=== PATIENT | male | born 1970 | race African-American/Black ===

== ENCOUNTER 2017-01-05 18:55 | Emergency (ER) | payer MEDICAID, MEDICARE ==
[~2017-01-05] VITALS: Ht 172.7 cm; Wt 63.5 kg
[~2017-01-05 18:55] MED LIST: INSU100I17; LISI-334
[2017-01-05 19:11] VITALS: BP 171/95
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
[2017-01-05] MEDS ORDERED: IBUPROFEN 600 MG TABLET. PO ONE (20:15)
[2017-01-05] MEDS ORDERED: HYDR-971 PO (21:46)
[2017-01-05] MEDS ORDERED: NAPR500T3 PO (21:47)
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
== END 2017-01-05 21:54 | disposition home or self-care (01) ==
LOC: ER 18:55
DX: M25.552 Pain in left hip (principal); I10 Essential (primary) hypertension; E11.9 Type 2 diabetes mellitus without complications; G89.29 Other chronic pain; X58.XXXA Exposure to other specified factors, initial encounter; Y93.61 Activity, american tackle football; Y92.89 Other specified places as the place of occurrence of the external cause; Y99.8 Other external cause status
CPT/HCPCS: 73502; 99284

== ENCOUNTER 2017-11-29 14:49 | Inpatient (IN) | payer MEDICAID, MEDICARE ==
[~2017-11-29] VITALS: Ht 177.8 cm; Wt 61.2 kg
[~2017-11-29 14:49] MED LIST changes: +HYDR-971 PO; -INSU100I17; +INSU100I17 SQ; +NAPR-514 PO
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
[2017-11-29] MEDS ORDERED: IV NORMAL SALINE 1000ML BAG 1,000 ML IV ONE ×2 (15:15)
[2017-11-29 15:19] LABS: BASO % 1 % (0-3); EOS # 0.1 x10^3/uL (0.0-0.7); EOS % 1 % (0-3); HEMATOCRIT 40.9 % (39.0-53.0); HEMOGLOBIN 13.8 g/dL (13.0-17.5); LYMPH # 2.1 x10^3/uL (1.0-4.8); LYMPH % 29 % (24-48); MEAN CORPUSCULAR HEMOGLOBIN 29 pg (25-35); MEAN CORPUSCULAR HGB CONC 34 g/dL (31-37); MEAN CORPUSCULAR VOLUME 86 fL (79-100); MONO # 0.7 x10^3/uL (0.0-1.1); MONO % 9 % (0-9); NEUT # 4.3 x10^3uL (1.8-7.7); NEUT % 61 % (31-73); PLATELET COUNT 221 x10^3/uL (140-400); RED BLOOD COUNT 4.74 x10^6/uL (4.30-5.70); RED CELL DISTRIBUTION WIDTH 14.7 % (11.5-14.5); WHITE BLOOD COUNT 7.1 x10^3/uL (4.0-11.0)
[2017-11-29] MEDS ORDERED: INSULIN REGULAR 100 UNIT/ML 3ML VIAL. IV ONE (15:30)
[2017-11-29 15:45] LABS: ALBUMIN 3.3 g/dL (3.4-5.0); ALBUMIN/GLOBULIN RATIO 0.9 (1.0-1.7); CREATININE 1.1 mg/dL (0.7-1.3); GFR 86.1; MAGNESIUM 1.8 mg/dL (1.8-2.4); POTASSIUM 4.1 mmol/L (3.5-5.1); TOTAL BILIRUBIN 0.4 mg/dL (0.2-1.0); TOTAL PROTEIN 6.9 g/dL (6.4-8.2)
[2017-11-29] MEDS ORDERED: MORPHINE SULFATE 2 MG/ML VIAL. IV ONE (15:45)
--- NOTE | 2017-11-29 15:49 | RAD ---
Portable chest, 11/29/2017: HISTORY: Diabetic with hyperglycemia and vomiting Comparison is made to a study from 08/01/2012. The heart size and pulmonary vascularity are normal. No pulmonary infiltrate is seen. There is no evidence of pleural fluid. IMPRESSION: No acute cardiopulmonary abnormality is detected. Electronically signed by: Zia Salazar MD (11/29/2017 3:45 PM) [facility]
[2017-11-29] MEDS ORDERED: INSULIN,REGULAR 150 UNIT DRIP 150 ML IV ONE (16:00)
[2017-11-29 16:21] LABS: BILIRUBIN,URINE NEGATIVE (NEG); CLARITY,URINE CLEAR; COLOR,URINE YELLOW; NITRITE,URINE NEGATIVE (NEG); PROTEIN,URINE NEGATIVE (NEG-TRACE); UROBILINOGEN,URINE 0.2 mg/dL (0.2 mg/dL)
[2017-11-29 16:38] LABS: RBC,URINE OCC /HPF (0-2); WBC,URINE OCC /HPF (0-4)
[2017-11-29 16:39] LABS: BACTERIA,URINE 0 /HPF (0-FEW); SQUAMOUS EPITHELIAL CELL,UR FEW /LPF
[2017-11-29] MEDS ORDERED: ONDANSETRON PF 4 MG/2 ML VIAL. IV PRN (17:00)
[2017-11-29] MEDS ORDERED: ACETAMINOPHEN 325 MG TABLET. PO PRN (17:00)
[2017-11-29] MEDS ORDERED: INSU100I27 SQ (19:27)
[2017-11-29] MEDS ORDERED: CYAN10005 PO (19:27)
[2017-11-29] MEDS ORDERED: HYDR-2766 PO (19:27)
[2017-11-29 19:35] VITALS: BP 150/99
[2017-11-29] MEDS: fentaNYL PF VIAL 100 MCG/2 ML VIAL IV PRN ×2 (19:37→23:44)
[2017-11-29] MEDS ORDERED: INSULIN GLARGINE 300 UNITS/3 ML INSULN.PEN. SQ SCH (21:00)
[2017-11-29] MEDS: HYDROcodone/APAP 10/325 1 TAB TABLET PO SCH (21:31)
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
[2017-11-29 23:35] VITALS: BP 152/98
[2017-11-30 04:15] VITALS: BP 154/100
--- NOTE | 2017-11-30 04:22 | EKG ---
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
--- NOTE | 2017-11-30 04:22 | EKG ---
[facility] [address] [place] [address] Test Date: 2017-11-29 Test Time: 15:28:47 Pat Name: LILO ESTRADA Department: Room: 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
[2017-11-30 04:54] LABS: BASO % 1 % (0-3); EOS # 0.2 x10^3/uL (0.0-0.7); EOS % 2 % (0-3); HEMATOCRIT 39.6 % (39.0-53.0); HEMOGLOBIN 13.4 g/dL (13.0-17.5); LYMPH # 3.4 x10^3/uL (1.0-4.8); LYMPH % 46 % (24-48); MEAN CORPUSCULAR HEMOGLOBIN 29 pg (25-35); MEAN CORPUSCULAR HGB CONC 34 g/dL (31-37); MEAN CORPUSCULAR VOLUME 86 fL (79-100); MONO # 0.7 x10^3/uL (0.0-1.1); MONO % 9 % (0-9); NEUT # 3.1 x10^3uL (1.8-7.7); NEUT % 42 % (31-73); PLATELET COUNT 205 x10^3/uL (140-400); RED BLOOD COUNT 4.59 x10^6/uL (4.30-5.70); RED CELL DISTRIBUTION WIDTH 14.3 % (11.5-14.5); WHITE BLOOD COUNT 7.4 x10^3/uL (4.0-11.0)
[2017-11-30] MEDS: fentaNYL PF VIAL 100 MCG/2 ML VIAL IV PRN (05:01)
[2017-11-30 05:14] LABS: ALBUMIN 2.9 g/dL (3.4-5.0); ALBUMIN/GLOBULIN RATIO 1.1 (1.0-1.7); CALCIUM 8.5 mg/dL (8.5-10.1); CREATININE 0.7 mg/dL (0.7-1.3); POTASSIUM 3.8 mmol/L (3.5-5.1); TOTAL BILIRUBIN 0.5 mg/dL (0.2-1.0); TOTAL PROTEIN 5.6 g/dL (6.4-8.2)
[2017-11-30 07:00] VITALS: BP 147/90
[2017-11-30] MEDS ORDERED: INSULIN LISPRO 300 UNITS/3 ML INSULN.PEN. SQ SCH (08:00)
[2017-11-30] MEDS: HYDROcodone/APAP 10/325 1 TAB TABLET PO SCH (08:38)
[2017-11-30] MEDS ORDERED: CYANOCOBALAMIN (VITAMIN B-12) 1,000 MCG TABLET. PO SCH (09:00)
[2017-11-30] MEDS ORDERED: INSU100I17 SQ (10:37)
[2017-11-30] MEDS ORDERED: INSU100I27 SQ (10:37)
[2017-11-30] MEDS ORDERED: LISI-334 PO (10:37)
[2017-11-30] MEDS ORDERED: HYDR-2766 PO (10:37)
--- NOTE | 2017-11-30 10:39 | PDOC3 ---
Discharge Summary Visit Information Date of Admission: Nov 29, 2017 Date of Discharge: Nov 30, 2017 Admitting Diagnosis: HONK Final Diagnosis acute diarrhea hyperkalemia compliance with Diabetes 1.5, on large insulin doses, normal weight HONK, hyperosmolar not ketosis Problems Medical Problems: (1) Diarrhea Status: Acute (2) Hyperglycemia Status: Acute (3) Hyponatremia Status: Acute Brief Hospital Course Allergies Allergies Coded Allergies Type Severity Reaction Last Updated Verified No Known Drug Allergies 09/12/13 No Vital Signs Vital Signs Date Time Temp Pulse Resp B/P (MAP) Pulse Ox O2 Delivery O2 Flow Rate FiO2 11/30/17 10:24 Room Air 11/30/17 07:00 97.7 75 18 147/90 (109) 99 97.7 Lab Results Laboratory Tests Test 11/29/17 15:10 11/29/17 16:10 11/29/17 16:26 11/29/17 16:48 White Blood Count 7.1 x10^3/uL (4.0-11.0) Red Blood Count 4.74 x10^6/uL (4.30-5.70) Hemoglobin 13.8 g/dL (13.0-17.5) Hematocrit 40.9 % (39.0-53.0) Mean Corpuscular Volume 86 fL (79-100) Mean Corpuscular Hemoglobin 29 pg (25-35) Mean Corpuscular Hemoglobin Concent 34 g/dL (31-37) Red Cell Distribution Width 14.7 % (11.5-14.5) Platelet Count 221 x10^3/uL (140-400) Neutrophils (%) (Auto) 61 % (31-73) Lymphocytes (%) (Auto) 29 % (24-48) Monocytes (%) (Auto) 9 % (0-9) Eosinophils (%) (Auto) 1 % (0-3) Basophils (%) (Auto) 1 % (0-3) Neutrophils # (Auto) 4.3 x10^3uL (1.8-7.7) Lymphocytes # (Auto) 2.1 x10^3/uL (1.0-4.8) Monocytes # (Auto) 0.7 x10^3/uL (0.0-1.1) Eosinophils # (Auto) 0.1 x10^3/uL (0.0-0.7) Basophils # (Auto) 0.0 x10^3/uL (0.0-0.2) Sodium Level 126 mmol/L (136-145) Potassium Level 4.1 mmol/L (3.5-5.1) Chloride Level 95 mmol/L (98-107) Carbon Dioxide Level 25 mmol/L (21-32) Anion Gap 6 (6-14) Blood Urea Nitrogen 11 mg/dL (8-26) Creatinine 1.1 mg/dL (0.7-1.3) Estimated GFR (Cockcroft-Gault) 86.1 BUN/Creatinine Ratio 10 (6-20) Glucose Level 727 mg/dL (70-99) Calcium Level 9.0 mg/dL (8.5-10.1) Magnesium Level 1.8 mg/dL (1.8-2.4) Total Bilirubin 0.4 mg/dL (0.2-1.0) Aspartate Amino Transf (AST/SGOT) 11 U/L (15-37) Alanine Aminotransferase (ALT/SGPT) 17 U/L (16-63) Alkaline Phosphatase 192 U/L (46-116) Creatine Kinase 104 U/L (39-308) Troponin I Quantitative < 0.017 ng/mL (0.000-0.055) Total Protein 6.9 g/dL (6.4-8.2) Albumin 3.3 g/dL (3.4-5.0) Albumin/Globulin Ratio 0.9 (1.0-1.7) Urine Collection Type Unknown Urine Color Yellow Urine Clarity Clear Urine pH 6.0 Urine Specific [place] >=1.030 Urine Protein Negative mg/dL (NEG-TRACE) Urine Glucose (UA) >=1000 mg/dL (NEG) Urine Ketones (Stick) Negative mg/dL (NEG) Urine Blood Negative (NEG) Urine Nitrite Negative (NEG) Urine Bilirubin Negative (NEG) Urine Urobilinogen Dipstick 0.2 mg/dL (0.2 mg/dL) Urine Leukocyte Esterase Negative (NEG) Urine RBC Occ /HPF (0-2) Urine WBC Occ /HPF (0-4) Urine Squamous Epithelial Cells Few /LPF Urine Bacteria 0 /HPF (0-FEW) Glucose (Fingerstick) 196 mg/dL (70-99) 140 mg/dL (70-99) Test 11/29/17 17:35 8/11/18 21:27 11/30/17 04:00 11/30/17 04:49 Glucose Level 216 mg/dL (70-99) 124 mg/dL (70-99) Glucose (Fingerstick) 344 mg/dL (70-99) 85 mg/dL (70-99) White Blood Count 7.4 x10^3/uL (4.0-11.0) Red Blood Count 4.59 x10^6/uL (4.30-5.70) Hemoglobin 13.4 g/dL (13.0-17.5) Hematocrit 39.6 % (39.0-53.0) Mean Corpuscular Volume 86 fL (79-100) Mean Corpuscular Hemoglobin 29 pg (25-35) Mean Corpuscular Hemoglobin Concent 34 g/dL (31-37) Red Cell Distribution Width 14.3 % (11.5-14.5) Platelet Count 205 x10^3/uL (140-400) Neutrophils (%) (Auto) 42 % (31-73) Lymphocytes (%) (Auto) 46 % (24-48) Monocytes (%) (Auto) 9 % (0-9) Eosinophils (%) (Auto) 2 % (0-3) Basophils (%) (Auto) 1 % (0-3) Neutrophils # (Auto) 3.1 x10^3uL (1.8-7.7) Lymphocytes # (Auto) 3.4 x10^3/uL (1.0-4.8) Monocytes # (Auto) 0.7 x10^3/uL (0.0-1.1) Eosinophils # (Auto) 0.2 x10^3/uL (0.0-0.7) Basophils # (Auto) 0.0 x10^3/uL (0.0-0.2) Sodium Level 136 mmol/L (136-145) Potassium Level 3.8 mmol/L (3.5-5.1) Chloride Level 103 mmol/L (98-107) Carbon Dioxide Level 25 mmol/L (21-32) Anion Gap 8 (6-14) Blood Urea Nitrogen 9 mg/dL (8-26) Creatinine 0.7 mg/dL (0.7-1.3) Estimated GFR (Cockcroft-Gault) 145.0 BUN/Creatinine Ratio 13 (6-20) Calcium Level 8.5 mg/dL (8.5-10.1) Total Bilirubin 0.5 mg/dL (0.2-1.0) Aspartate Amino Transf (AST/SGOT) 12 U/L (15-37) Alanine Aminotransferase (ALT/SGPT) 18 U/L (16-63) Alkaline Phosphatase 117 U/L (46-116) Troponin I Quantitative < 0.017 ng/mL (0.000-0.055) Total Protein 5.6 g/dL (6.4-8.2) Albumin 2.9 g/dL (3.4-5.0) Albumin/Globulin Ratio 1.1 (1.0-1.7) Test 11/30/17 07:14 Glucose (Fingerstick) 137 mg/dL (70-99) Laboratory Tests Test 11/29/17 15:10 11/29/17 16:10 11/29/17 16:26 11/29/17 16:48 White Blood Count 7.1 x10^3/uL (4.0-11.0) Red Blood Count 4.74 x10^6/uL (4.30-5.70) Hemoglobin 13.8 g/dL (13.0-17.5) Hematocrit 40.9 % (39.0-53.0) Mean Corpuscular Volume 86 fL (79-100) Mean Corpuscular Hemoglobin 29 pg (25-35) Mean Corpuscular Hemoglobin Concent 34 g/dL (31-37) Red Cell Distribution Width 14.7 % (11.5-14.5) Platelet Count 221 x10^3/uL (140-400) Neutrophils (%) (Auto) 61 % (31-73) Lymphocytes (%) (Auto) 29 % (24-48) Monocytes (%) (Auto) 9 % (0-9) Eosinophils (%) (Auto) 1 % (0-3) Basophils (%) (Auto) 1 % (0-3) Neutrophils # (Auto) 4.3 x10^3uL (1.8-7.7) Lymphocytes # (Auto) 2.1 x10^3/uL (1.0-4.8) Monocytes # (Auto) 0.7 x10^3/uL (0.0-1.1) Eosinophils # (Auto) 0.1 x10^3/uL (0.0-0.7) Basophils # (Auto) 0.0 x10^3/uL (0.0-0.2) Sodium Level 126 mmol/L (136-145) Potassium Level 4.1 mmol/L (3.5-5.1) Chloride Level 95 mmol/L (98-107) Carbon Dioxide Level 25 mmol/L (21-32) Anion Gap 6 (6-14) Blood Urea Nitrogen 11 mg/dL (8-26) Creatinine 1.1 mg/dL (0.7-1.3) Estimated GFR (Cockcroft-Gault) 86.1 BUN/Creatinine Ratio 10 (6-20) Glucose Level 727 mg/dL (70-99) Calcium Level 9.0 mg/dL (8.5-10.1) Magnesium Level 1.8 mg/dL (1.8-2.4) Total Bilirubin 0.4 mg/dL (0.2-1.0) Aspartate Amino Transf (AST/SGOT) 11 U/L (15-37) Alanine Aminotransferase (ALT/SGPT) 17 U/L (16-63) Alkaline Phosphatase 192 U/L (46-116) Creatine Kinase 104 U/L (39-308) Troponin I Quantitative < 0.017 ng/mL (0.000-0.055) Total Protein 6.9 g/dL (6.4-8.2) Albumin 3.3 g/dL (3.4-5.0) Albumin/Globulin Ratio 0.9 (1.0-1.7) Urine Collection Type Unknown Urine Color Yellow Urine Clarity Clear Urine pH 6.0 Urine Specific [place] >=1.030 Urine Protein Negative mg/dL (NEG-TRACE) Urine Glucose (UA) >=1000 mg/dL (NEG) Urine Ketones (Stick) Negative mg/dL (NEG) Urine Blood Negative (NEG) Urine Nitrite Negative (NEG) Urine Bilirubin Negative (NEG) Urine Urobilinogen Dipstick 0.2 mg/dL (0.2 mg/dL) Urine Leukocyte Esterase Negative (NEG) Urine RBC Occ /HPF (0-2) Urine WBC Occ /HPF (0-4) Urine Squamous Epithelial Cells Few /LPF Urine Bacteria 0 /HPF (0-FEW) Glucose (Fingerstick) 196 mg/dL (70-99) 140 mg/dL (70-99) Test 11/29/17 17:35 11/29/17 21:27 11/30/17 04:00 11/30/17 04:49 Glucose Level 216 mg/dL (70-99) 124 mg/dL (70-99) Glucose (Fingerstick) 344 mg/dL (70-99) 85 mg/dL (70-99) White Blood Count 7.4 x10^3/uL (4.0-11.0) Red Blood Count 4.59 x10^6/uL (4.30-5.70) Hemoglobin 13.4 g/dL (13.0-17.5) Hematocrit 39.6 % (39.0-53.0) Mean Corpuscular Volume 86 fL (79-100) Mean Corpuscular Hemoglobin 29 pg (25-35) Mean Corpuscular Hemoglobin Concent 34 g/dL (31-37) Red Cell Distribution Width 14.3 % (11.5-14.5) Platelet Count 205 x10^3/uL (140-400) Neutrophils (%) (Auto) 42 % (31-73) Lymphocytes (%) (Auto) 46 % (24-48) Monocytes (%) (Auto) 9 % (0-9) Eosinophils (%) (Auto) 2 % (0-3) Basophils (%) (Auto) 1 % (0-3) Neutrophils # (Auto) 3.1 x10^3uL (1.8-7.7) Lymphocytes # (Auto) 3.4 x10^3/uL (1.0-4.8) Monocytes # (Auto) 0.7 x10^3/uL (0.0-1.1) Eosinophils # (Auto) 0.2 x10^3/uL (0.0-0.7) Basophils # (Auto) 0.0 x10^3/uL (0.0-0.2) Sodium Level 136 mmol/L (136-145) Potassium Level 3.8 mmol/L (3.5-5.1) Chloride Level 103 mmol/L (98-107) Carbon Dioxide Level 25 mmol/L (21-32) Anion Gap 8 (6-14) Blood Urea Nitrogen 9 mg/dL (8-26) Creatinine 0.7 mg/dL (0.7-1.3) Estimated GFR (Cockcroft-Gault) 145.0 BUN/Creatinine Ratio 13 (6-20) Calcium Level 8.5 mg/dL (8.5-10.1) Total Bilirubin 0.5 mg/dL (0.2-1.0) Aspartate Amino Transf (AST/SGOT) 12 U/L (15-37) Alanine Aminotransferase (ALT/SGPT) 18 U/L (16-63) Alkaline Phosphatase 117 U/L (46-116) Troponin I Quantitative < 0.017 ng/mL (0.000-0.055) Total Protein 5.6 g/dL (6.4-8.2) Albumin 2.9 g/dL (3.4-5.0) Albumin/Globulin Ratio 1.1 (1.0-1.7) Test 11/30/17 07:14 Glucose (Fingerstick) 137 mg/dL (70-99) Brief Hospital Course Mr. Robin is a 47 old male, admit with nausea, diarrhea, hyperkalemia hyperosmol, low sodium Fluid, insulin, potasssium replacement, felt much better at DC Discharge Information Condition at Discharge: Improved Follow Up: Weeks Disposition/Orders: D/C to Home Scheduled Cyanocobalamin (Vitamin B-12) (Vitamin B-12) 1,000 Mcg Tablet, 1 TAB PO DAILY, # 30 Ref 2 (Reported) Entered as Reported by: KACY BLAKE on 11/29/171926 Last Taken: Unknown Dose on Unknown Date & Time Last Action: Continued on 11/29/172043 by NATHAN HERNANDES Insulin Aspart (Novolog Flexpen) 100 Unit/1 Ml Insuln.pen, 30 UNITS SQ TIDWMEALS for 30 Days, Ref 5 Prescribed by: NATHAN HERNANDES on 11/30/17 1037 Insulin Detemir (Levemir Flextouch) 100 Unit/1 Ml Insuln.pen, 70 UNIT SQ QHS for 30 Days, Ref 5 Prescribed by: NATHAN HERNANDES on 11/30/17 1037 Lisinopril (Lisinopril) 20 Mg Tablet, 1 TAB PO DAILY, #30 Ref 5 Prescribed by: NATHAN HERNANDES on 11/30/17 1037 Scheduled PRN Hydrocodone Bit/Acetaminophen (Hydrocodone-Apap 10-325 ) 1 Each Tablet, 1 TAB PO QID PRN for PAIN, #60 Prescribed by: NATHAN HERNANDES on 11/30/17 1037 Discontinued Medications Lisinopril (Lisinopril) 20 Mg Tablet, DAILY, (Reported) Entered as Reported by: ROSE KEMP on 07/29/131849 Last Action: Discontinued on 11/29/17 1927 by KACY BLAKE Patient Instructions Patient Instructions > 30 min face to face NATHAN Adams MD Nov 30, 2017 10:39
[2017-11-30 10:53] VITALS: BP 142/90
== END 2017-11-30 11:20 | disposition home or self-care (01) | DRG 391 ==
LOC: ER 14:49 → 5 SOUTH 16:48
PROVIDERS: ADMIT Internal Medicine; ATTEND Internal Medicine
DX: R19.7 Diarrhea, unspecified (principal); E11.00 Type 2 diabetes mellitus with hyperosmolarity without nonketotic hyperglycemic-hyperosmolar coma (NKHHC); E87.1 Hypo-osmolality and hyponatremia; G89.29 Other chronic pain; M25.552 Pain in left hip; I10 Essential (primary) hypertension; M19.90 Unspecified osteoarthritis, unspecified site; F17.210 Nicotine dependence, cigarettes, uncomplicated; E87.5 Hyperkalemia
CPT/HCPCS: 36415; 71045; 80053; 81001; 82550; 82947; 82962; 83735; 84484; 85025; 93005; 96361; 96374; 96375; J1815; J2270; J3010; J7030; 99285-25

== ENCOUNTER 2017-12-27 00:49 | Emergency (ER) | payer MEDICARE ==
[~2017-12-27] VITALS: Ht 175.3 cm; Wt 63.5 kg
[~2017-12-27 00:49] MED LIST changes: +CYAN10005 PO; +HYDR-2766 PO; +INSU100I27 SQ; +LISI-334 PO
[2017-12-27 01:15] VITALS: BP 140/83
[2017-12-27] MEDS ORDERED: CLIN300C8 PO (01:22)
[2017-12-27] MEDS ORDERED: POLY10DR LEFTEYE (01:22)
[2017-12-27] MEDS ORDERED: CLINDAMYCIN HCL 150 MG CAPSULE. PO ONE (01:30)
--- NOTE | 2017-12-27 01:51 | PHYS DOC ---
Past Medical History Past Medical History: Diabetes-Type II, Hypertension, Other Additional Past Medical Histor: chronic left hip pain Past Surgical History: Other Additional Past Surgical Histo: LEFT HIP SURGERY, right forearm repair Alcohol Use: None Drug Use: None Adult General Chief Complaint Chief Complaint: EYE PROBLEMS HPI HPI Patient is a 47 year old male presents with drainage from the right eyelid for the last 1-2 days with some redness and pain no change in vision Review of Systems Review of Systems Negative for fever Current Medications Current Medications Current Medications Medications (Trade) Dose Ordered Sig/Corie Start Time Stop Time Status Last Admin Dose Admin Clindamycin HCl (Cleocin) 300 mg 1X ONCE 12/27/17 01:30 12/27/17 01:31 DC Allergies Allergies Allergies Coded Allergies Type Severity Reaction Last Updated Verified No Known Drug Allergies 09/12/13 No Physical Exam Physical Exam Constitutional: Well developed, well nourished, no acute distress, non-toxic appearance. [] HENT: Normocephalic, atraumatic, bilateral external ears normal, oropharynx moist, no oral exudates, nose normal. [] Eyes: PERRLA, EOMI, inferior left eyelid there is evidence of blepharitis with some localized induration there is some exudative drainage coming from what appears to be the medial lacrimal duct no obvious abscesses seen Neck: Normal range of motion, no tenderness, supple, no stridor. [] Pulmonary: Normal respiratory effort no increased work of breathing no obvious chest wall trauma- Abdomen: Bowel sounds normal, soft, no tenderness, no masses, no pulsatile masses. [] Skin: Warm, dry, no erythema, no rash. [] Back: No tenderness, no CVA tenderness. [] Extremities: No tenderness, no cyanosis, no clubbing, ROM intact, no edema. [] Neurologic: Alert and oriented X 3, normal motor function, normal sensory function, no focal deficits noted. [] Psychologic: Affect normal, judgement normal, mood normal. [] Current Patient Data Vital Signs Vital Signs Date Time Temp Pulse Resp B/P (MAP) Pulse Ox O2 Delivery O2 Flow Rate FiO2 12/27/17 01:15 97.4 93 20 140/83 (102) 98 Room Air 97.4 EKG EKG [] Radiology/Procedures Radiology/Procedures [] Course & Med Decision Making Course & Med Decision Making Pertinent Labs and Imaging studies reviewed. (See chart for details) []47-year-old diabetic evidence of probable blepharitis appears fairly focal there is some exudative drainage so we have done oral antibiotics as well as eyedrops return precautions were discussed for worsening periorbital erythema for fever or for any other symptoms or concerns. Patient has no pain with extraocular movements at this time Dragon Disclaimer Dragon Disclaimer This electronic medical record was generated, in whole or in part, using a voice recognition dictation system. Departure Departure Impression: Primary Impression: Blepharitis Disposition: HOME, SELF-CARE Condition: IMPROVED Patient Instructions: Blepharitis, [id number] Scripts Polymyxin B Sulf/Trimethoprim (POLYTRIM EYE DROPS) 10 Ml Drops 1 DROP LEFTEYE Q6HRS, #10 ML Prov: IVONNE STEVENS MD 12/27/17 Clindamycin Hcl (CLINDAMYCIN HCL) 300 Mg Capsule 1 CAP PO TID, #21 CAP Prov: IVONNE STEVENS MD 12/27/17 IVONNE STEVENS MD Dec 27, 2017 01:51
== END 2017-12-27 01:48 | disposition home or self-care (01) ==
LOC: ER 00:49
DX: H01.005 Unspecified blepharitis left lower eyelid (principal); G89.29 Other chronic pain; I10 Essential (primary) hypertension; E11.9 Type 2 diabetes mellitus without complications
CPT/HCPCS: 99283

== ENCOUNTER 2018-03-13 18:10 | Emergency (ER) | payer MEDICARE ==
[~2018-03-13] VITALS: Ht 177.8 cm; Wt 63.5 kg
[~2018-03-13 18:10] MED LIST changes: +CLIN300C8 PO; -HYDR-2766 PO; +HYDR-2769 PO; +HYDR-3164 PO; -HYDR-971 PO; +POLY10DR LEFTEYE
[2018-03-13 18:17] VITALS: BP 176/100
[2018-03-13] MEDS ORDERED: HYDR-3164 PO (18:41)
[2018-03-13] MEDS ORDERED: PENI500T PO (18:41)
[2018-03-13] MEDS ORDERED: CHLO15MO2 PO (18:41)
--- NOTE | 2018-03-13 18:41 | PHYS DOC ---
Past Medical History Past Medical History: Diabetes-Type II, Hypertension, Other Additional Past Medical Histor: chronic left hip pain Past Surgical History: Other Additional Past Surgical Histo: LEFT HIP SURGERY, right forearm repair Alcohol Use: None Drug Use: None Adult General Chief Complaint Chief Complaint: DENTAL PROBLEM [facility] HPI Patient is a 47 year old [f__sex] who presents with [] Review of Systems Review of Systems Constitutional: Denies fever or chills [] Eyes: Denies change in visual acuity, redness, or eye pain [] HENT: Denies nasal congestion or sore throat [] Respiratory: Denies cough or shortness of breath [] Cardiovascular: No additional information not addressed in HPI [] GI: Denies abdominal pain, nausea, vomiting, bloody stools or diarrhea [] : Denies dysuria or hematuria [] Musculoskeletal: Denies back pain or joint pain [] Integument: Denies rash or skin lesions [] Neurologic: Denies headache, focal weakness or sensory changes [] Endocrine: Denies polyuria or polydipsia [] All other systems were reviewed and found to be within normal limits, except as documented in this note. Allergies Allergies Allergies Coded Allergies Type Severity Reaction Last Updated Verified No Known Drug Allergies 09/12/13 No Physical Exam Physical Exam Constitutional: Well developed, well nourished, no acute distress, non-toxic appearance. [] HENT: Normocephalic, atraumatic, bilateral external ears normal, oropharynx moist, no oral exudates, nose normal. [] Eyes: PERRLA, EOMI, conjunctiva normal, no discharge. [] Neck: Normal range of motion, no tenderness, supple, no stridor. [] Cardiovascular:Heart rate regular rhythm, no murmur [] Lungs & Thorax: Bilateral breath sounds clear to auscultation [] Abdomen: Bowel sounds normal, soft, no tenderness, no masses, no pulsatile masses. [] Skin: Warm, dry, no erythema, no rash. [] Back: No tenderness, no CVA tenderness. [] Extremities: No tenderness, no cyanosis, no clubbing, ROM intact, no edema. [] Neurologic: Alert and oriented X 3, normal motor function, normal sensory function, no focal deficits noted. [] Psychologic: Affect normal, judgement normal, mood normal. [] Current Patient Data Vital Signs Vital Signs Date Time Temp Pulse Resp B/P (MAP) Pulse Ox O2 Delivery O2 Flow Rate FiO2 03/13/18 18:17 99.2 106 16 176/100 (125) 99 Room Air 99.2 EKG EKG [] Radiology/Procedures Radiology/Procedures [] Course & Med Decision Making Course & Med Decision Making Pertinent Labs and Imaging studies reviewed. (See chart for details) [] Dragon Disclaimer Dragon Disclaimer This electronic medical record was generated, in whole or in part, using a voice recognition dictation system. Departure Departure Impression: Primary Impression: Dentalgia Additional Impression: Dental caries Disposition: HOME, SELF-CARE Condition: IMPROVED Referrals: NO PCP (PCP) Patient Instructions: Dental Caries, Toothache-Brief Scripts Hydrocodone/Apap 5-325 (NORCO 5-325 TABLET) 1 Each Tablet 1 TAB PO PRN Q6HRS PRN for PAIN, #6 TAB 0 Refills Prov: PETER SMITH DO 03/13/18 Penicillin V Potassium (PENICILLIN V POTASSIUM) 500 Mg Tablet 1 TAB PO QID, #40 TAB Prov: PETER SMITH DO 03/13/18 Chlorhexidine Gluconate (PERIDEX) 15 Ml Mouthwash 15 ML PO BID, #946 ML Prov: PETER SMITH DO 03/13/18 Problem Qualifiers PETER SMITH DO Mar 13, 2018 18:41
[2018-03-13] MEDS ORDERED: DEXAMETHASONE 4 MG TABLET PO ONE (19:00)
[2018-03-13] MEDS ORDERED: BUPIVAC MPF-EPI 0.5%-1:200000 30 ML VIAL. INJ ONE (19:00)
[2018-03-13] MEDS ORDERED: PENICILLIN V K 250 MG TABLET. PO ONE (19:00)
== END 2018-03-13 20:19 | disposition home or self-care (01) ==
LOC: ER 18:10
DX: K08.89 Other specified disorders of teeth and supporting structures (principal); K02.9 Dental caries, unspecified; I10 Essential (primary) hypertension; E11.9 Type 2 diabetes mellitus without complications; G89.29 Other chronic pain
CPT/HCPCS: 96372; 99283; J3490; J8540

== ENCOUNTER 2018-09-25 15:18 | Inpatient (IN) | payer MEDICARE ==
[~2018-09-25] VITALS: Ht 172.7 cm; Wt 67.7 kg
[~2018-09-25 15:18] MED LIST changes: +CHLO15MO2 PO; +PENI500T PO
[2018-09-25] MEDS ORDERED: IV NORMAL SALINE 1000ML BAG 1,000 ML IV ONE ×2 (15:45)
[2018-09-25 15:53] LABS: BASO % 1 % (0-3); EOS # 0.1 x10^3/uL (0.0-0.7); EOS % 2 % (0-3); HEMATOCRIT 45.1 % (39.0-53.0); HEMOGLOBIN 15.1 g/dL (13.0-17.5); LYMPH # 2.1 x10^3/uL (1.0-4.8); LYMPH % 33 % (24-48); MEAN CORPUSCULAR HEMOGLOBIN 29 pg (25-35); MEAN CORPUSCULAR HGB CONC 34 g/dL (31-37); MEAN CORPUSCULAR VOLUME 88 fL (79-100); MONO # 0.8 x10^3/uL (0.0-1.1); MONO % 13 % (0-9); NEUT # 3.3 x10^3uL (1.8-7.7); NEUT % 52 % (31-73); PLATELET COUNT 243 x10^3/uL (140-400); RED BLOOD COUNT 5.14 x10^6/uL (4.30-5.70); RED CELL DISTRIBUTION WIDTH 14.5 % (11.5-14.5); WHITE BLOOD COUNT 6.3 x10^3/uL (4.0-11.0)
--- NOTE | 2018-09-25 16:05 | RAD ---
EXAM: CHEST 1 VIEW. HISTORY: Shortness of breath, weakness. COMPARISON: 11/29/2018. FINDINGS: A frontal view of the chest is obtained. There are no confluent infiltrates. There is no pneumothorax or pleural effusion. The heart is not enlarged. The aorta is tortuous. The left hemidiaphragm is mildly elevated, stable. IMPRESSION: 1. No confluent infiltrates. Electronically signed by: Tavon Smiley MD (09/25/2018 4:02 PM) [facility]
[2018-09-25 16:06] LABS: CALCIUM 9.3 mg/dL (8.5-10.1); CREATININE 1.4 mg/dL (0.7-1.3); GFR 64.9; POTASSIUM 4.3 mmol/L (3.5-5.1)
[2018-09-25 16:11] LABS: ALBUMIN 3.4 g/dL (3.4-5.0); ALBUMIN/GLOBULIN RATIO 0.9 (1.0-1.7); TOTAL BILIRUBIN 0.4 mg/dL (0.2-1.0); TOTAL PROTEIN 7.3 g/dL (6.4-8.2)
--- NOTE | 2018-09-25 16:12 | EKG ---
[facility] [address] [place] [address] Test Date: 2018-09-25 Test Time: 15:29:53 Pat Name: LILO ESTRADA Department: Room: Gender: M [employer]: : 1970 Requested By: ANKITA DELATORRE Order Number: [id number] Reading MD: Measurements Intervals [place] Rate: 93 P: 66 PA: 128 QRS: -41 QRSD: 78 T: 27 QT: 350 QTc: 438 Interpretive Statements SINUS RHYTHM LEFT ATRIAL ABNORMALITY ABNORMAL LEFT AXIS DEVIATION LEFT ANTERIOR FASCICULAR BLOCK QRS(T) CONTOUR ABNORMALITY CONSISTENT WITH ANTEROSEPTAL INFARCT PROBABLY OLD ABNORMAL ECG RI6.01 Unconfirmed report No previous ECG available for comparison
--- NOTE | 2018-09-25 16:16 | RAD ---
EXAM: RIGHT UPPER QUADRANT ULTRASOUND. HISTORY: Right upper quadrant pain. COMPARISON: None. FINDINGS: Sonographic evaluation of the right upper quadrant was performed. The liver appears normal in parenchymal echotexture. There are no focal lesions. The gallbladder is partially contracted but otherwise unremarkable without evidence of stones, wall thickening or pericholecystic fluid. There is no sonographic Patel sign. The common duct measures 2 mm. The visualized portions of the head of the pancreas reveal no abnormality. The right kidney measures 11.2 cm. Right renal cortical echogenicity is mildly increased. Cortical thickness is preserved. There is no hydronephrosis. The visualized portions of the abdominal aorta and inferior vena cava are grossly patent and normal in caliber. IMPRESSION: 1. Mildly increased right renal cortical echogenicity suggests intrinsic renal disease. In the setting of pain, pyelonephritis could also be considered. Correlate with urinalysis. 2. The gallbladder is contracted but otherwise unremarkable. Electronically signed by: Tavon Smiley MD (09/25/2018 4:13 PM) [facility]
--- NOTE | 2018-09-25 16:31 | RAD ---
CT HEAD WO CONTRAST Indication: Weakness for 4 days. Exposure: One or more of the following individualized dose reduction techniques were utilized for this examination: 1. Automated exposure control 2. Adjustment of the mA and/or kV according to patient size 3. Use of iterative reconstruction technique. Technique: Standard imaging without intravenous contrast. Comparison: None FINDINGS: There is a very small area of hypoattenuation of the left ravinder, may just be artifact. No evidence of acute intracranial hemorrhage, mass effect, midline shift or abnormal extra-axial fluid collection. Lee-white matter distinction is intact. The orbits appear symmetric. No evidence of prominent scalp swelling. The visualized sinuses demonstrate mild ethmoid and maxillary sinus mucosal thickening. No acute skull abnormality. IMPRESSION: 1. Small low-density focus within the left ravinder, may just be artifactual. If there is concern for acute ischemia at the ravinder, MRI could further evaluate. 2. No evidence of acute intracranial hemorrhage or mass effect. Electronically signed by: Vini Klein MD (09/25/2018 4:28 PM) [id number]
[2018-09-25 16:54] LABS: BILIRUBIN,URINE NEGATIVE (NEG); CLARITY,URINE CLEAR; COLOR,URINE YELLOW; NITRITE,URINE NEGATIVE (NEG); PH,URINE 5.5; PROTEIN,URINE NEGATIVE (NEG-TRACE); UROBILINOGEN,URINE 0.2 mg/dL (0.2 mg/dL)
[2018-09-25] MEDS ORDERED: INSULIN REGULAR 100 UNIT/ML 3ML VIAL. IV ONE (17:00)
[2018-09-25 17:04] LABS: AMPHETAMINE/METHAMPHETAMINE NEG (NEG); BARBITURATES NEG (NEG); BENZODIAZEPINES NEG (NEG); CANNABINOIDS NEG (NEG); COCAINE POS (NEG); METHADONE NEG (NEG); OPIATES NEG (NEG); PHENCYCLIDINE NEG (NEG)
[2018-09-25 17:06] LABS: BACTERIA,URINE 0 /HPF (0-FEW); SQUAMOUS EPITHELIAL CELL,UR MOD /LPF; TRICHOMONAS,URINE PRESENT
[2018-09-25] MEDS ORDERED: NAPROXEN 500 MG TABLET PO STA (18:17)
[2018-09-25] MEDS ORDERED: HYDROcodone/APAP 5/325MG 1 TAB TABLET PO ONE (18:30)
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
[2018-09-25] MEDS ORDERED: HYDROcodone/APAP 5/325MG 1 TAB TABLET PO PRN (18:45)
[2018-09-25] MEDS ORDERED: LABETALOL 20 MG/4 ML DISP.SYRIN. IVP PRN (18:45)
[2018-09-25] MEDS ORDERED: ZOLPIDEM 5 MG TABLET. PO PRN (18:45)
[2018-09-25] MEDS ORDERED: DEXTROSE 50% 25 GM / 50ML DISP.SYRIN. IV PRN (18:45)
--- NOTE | 2018-09-25 18:50 | PHYS DOC ---
Past Medical History Past Medical History: Diabetes-Type II, Hypertension, Other Additional Past Medical Histor: chronic left hip pain Past Surgical History: Other Additional Past Surgical Histo: LEFT HIP SURGERY, right forearm repair Additional Information: 0.5 PPD Alcohol Use: None Drug Use: None Adult General Chief Complaint Chief Complaint: WEAKNESS/GENERALIZED HPI HPI Patient is a 48 year old male with history of diabetes in 2, hypertension, who presents today complaining of generalized weakness, symptoms for 4 days. Patient also states he has history of diabetes as well as hypertension, he stopped using his medications months ago. He states he does not have any money to buy the medications. Patient denies any chest pain or shortness of breath. Patient is also complaining of mild to moderate right upper quadrant sharp abdominal pain since yesterday. Denies any nausea vomiting. Denies any exacerbating or relieving factors to his abdominal pain. Review of Systems Review of Systems Constitutional: Denies fever or chills [] Eyes: Denies change in visual acuity, redness, or eye pain [] HENT: Denies nasal congestion or sore throat [] Respiratory: Denies cough or shortness of breath [] Cardiovascular: No additional information not addressed in HPI [] GI: Denies abdominal pain, nausea, vomiting, bloody stools or diarrhea [] : Denies dysuria or hematuria [] Musculoskeletal: Denies back pain or joint pain [] Integument: Denies rash or skin lesions [] Neurologic: Reports generalized weakness. Denies headache, focal weakness or sensory changes [] All other systems were reviewed and found to be within normal limits, except as documented in this note. Current Medications Current Medications Current Medications Medications (Trade) Dose Ordered Sig/Corie Start Time Stop Time Status Last Admin Dose Admin Acetaminophen/ Hydrocodone Bitart (Lortab 5/325) 1 tab PRN Q6HRS PRN 09/25/18 18:45 UNV Dextrose (Dextrose 50%-Water Syringe) 12.5 gm PRN Q15MIN PRN 09/25/18 18:45 UNV Insulin Glargine (Lantus) 60 units QHS 09/25/18 21:00 Insulin Human Lispro (HumaLOG) 30 units TIDWMEALS 09/26/18 08:00 UNV Insulin Human Regular (HumuLIN R VIAL) 8 unit 1X ONCE 09/25/18 17:00 09/25/18 17:01 DC 09/25/18 17:25 8 UNIT Ketorolac Tromethamine (Toradol 15mg Vial) 15 mg PRN Q6HRS PRN 09/25/18 18:45 09/30/18 18:44 UNV Labetalol HCl (Normodyne Iv Push) 20 mg PRN Q2HR PRN 09/25/18 18:45 Lisinopril (Prinivil) 20 mg DAILY 09/26/18 09:00 UNV Naproxen (Naprosyn) 250 mg BID 09/25/18 21:00 UNV Sodium Chloride 1,000 ml @ 100 mls/hr Q10H 09/25/18 18:45 UNV Zolpidem Tartrate (Ambien) 5 mg PRN QHS PRN 09/25/18 18:45 UNV Allergies Allergies Allergies Coded Allergies Type Severity Reaction Last Updated Verified No Known Drug Allergies 09/12/13 No Physical Exam Physical Exam Constitutional: Well developed, well nourished, no acute distress, non-toxic appearance. [] HENT: Normocephalic, atraumatic, bilateral external ears normal, oropharynx moist, no oral exudates, nose normal. [] Eyes: PERRLA, EOMI, conjunctiva normal, no discharge. [] Neck: Normal range of motion, no tenderness, supple, no stridor. [] Cardiovascular:Heart rate regular rhythm, no murmur [] Lungs & Thorax: Bilateral breath sounds clear to auscultation [] Abdomen: Bowel sounds normal, soft, no tenderness, no masses, no pulsatile masses. [] Skin: Warm, dry, no erythema, no rash. [] Back: No tenderness, no CVA tenderness. [] Extremities: No tenderness, no cyanosis, no clubbing, ROM intact, no edema. [] Neurologic: Alert and oriented X 3, normal motor function, normal sensory function, no focal deficits noted. Cranial nerves II through XII intact Psychologic: Affect normal, judgement normal, mood normal. [] Current Patient Data Vital Signs Vital Signs Date Time Temp Pulse Resp B/P (MAP) Pulse Ox O2 Delivery O2 Flow Rate FiO2 09/25/18 15:23 98.2 98 16 175/100 (125) 99 Room Air 98.2 Lab Values Laboratory Tests Test 09/25/18 15:27 09/25/18 15:34 09/25/18 16:45 09/25/18 18:15 Glucose (Fingerstick) 451 mg/dL (70-99) H 117 mg/dL (70-99) H White Blood Count 6.3 x10^3/uL (4.0-11.0) Red Blood Count 5.14 x10^6/uL (4.30-5.70) Hemoglobin 15.1 g/dL (13.0-17.5) Hematocrit 45.1 % (39.0-53.0) Mean Corpuscular Volume 88 fL (79-100) Mean Corpuscular Hemoglobin 29 pg (25-35) Mean Corpuscular Hemoglobin Concent 34 g/dL (31-37) Red Cell Distribution Width 14.5 % (11.5-14.5) Platelet Count 243 x10^3/uL (140-400) Neutrophils (%) (Auto) 52 % (31-73) Lymphocytes (%) (Auto) 33 % (24-48) Monocytes (%) (Auto) 13 % (0-9) H Eosinophils (%) (Auto) 2 % (0-3) Basophils (%) (Auto) 1 % (0-3) Neutrophils # (Auto) 3.3 x10^3uL (1.8-7.7) Lymphocytes # (Auto) 2.1 x10^3/uL (1.0-4.8) Monocytes # (Auto) 0.8 x10^3/uL (0.0-1.1) Eosinophils # (Auto) 0.1 x10^3/uL (0.0-0.7) Basophils # (Auto) 0.0 x10^3/uL (0.0-0.2) Sodium Level 137 mmol/L (136-145) Potassium Level 4.3 mmol/L (3.5-5.1) Chloride Level 97 mmol/L (98-107) L Carbon Dioxide Level 26 mmol/L (21-32) Anion Gap 14 (6-14) Blood Urea Nitrogen 20 mg/dL (8-26) Creatinine 1.4 mg/dL (0.7-1.3) H Estimated GFR (Cockcroft-Gault) 64.9 BUN/Creatinine Ratio 14 (6-20) Glucose Level 465 mg/dL (70-99) H Calcium Level 9.3 mg/dL (8.5-10.1) Magnesium Level 2.0 mg/dL (1.8-2.4) Total Bilirubin 0.4 mg/dL (0.2-1.0) Aspartate Amino Transferase (AST) 15 U/L (15-37) Alanine Aminotransferase (ALT) 17 U/L (16-63) Alkaline Phosphatase 143 U/L (46-116) H Creatine Kinase 138 U/L (39-308) Creatine Kinase MB (Mass) 1.7 ng/mL (0.0-3.6) Creatine Kinase MB Relative Index 1.2 % (0-4) Troponin I Quantitative < 0.017 ng/mL (0.000-0.055) FA-Map-E-Type Natriuretic Peptide 110 pg/mL (0-124) Total Protein 7.3 g/dL (6.4-8.2) Albumin 3.4 g/dL (3.4-5.0) Albumin/Globulin Ratio 0.9 (1.0-1.7) L Lipase 115 U/L (73-393) Urine Collection Type Void Urine Color Yellow Urine Clarity Clear Urine pH 5.5 Urine Specific [place] 1.025 Urine Protein Negative mg/dL (NEG-TRACE) Urine Glucose (UA) >=1000 mg/dL (NEG) Urine Ketones (Stick) 40 mg/dL (NEG) Urine Blood Trace (NEG) Urine Nitrite Negative (NEG) Urine Bilirubin Negative (NEG) Urine Urobilinogen Dipstick 0.2 mg/dL (0.2 mg/dL) Urine Leukocyte Esterase Negative (NEG) Urine RBC 3-5 /HPF (0-2) Urine WBC 5-10 /HPF (0-4) Urine Squamous Epithelial Cells Mod /LPF Urine Bacteria 0 /HPF (0-FEW) Urine Trichomonas Present Urine Opiates Screen Neg (NEG) Urine Methadone Screen Neg (NEG) Urine Barbiturates Neg (NEG) Urine Phencyclidine Screen Neg (NEG) Urine Amphetamine/Methamphetamine Neg (NEG) Urine Benzodiazepines Screen Neg (NEG) Urine Cocaine Screen Pos (NEG) Urine Cannabinoids Screen Neg (NEG) Urine Ethyl Alcohol Neg (NEG) Laboratory Tests 09/25/18 15:34 Laboratory Tests 09/25/18 15:34 EKG EKG Interpreted by Dr. Watkins sinus rhythm heart rate 93 no STEMI Radiology/Procedures Radiology/Procedures []PROCEDURE: PORTABLE CHEST 1V EXAM: CHEST 1 VIEW. HISTORY: Shortness of breath, weakness. COMPARISON: 11/29/2018. FINDINGS: A frontal view of the chest is obtained. There are no confluent infiltrates. There is no pneumothorax or pleural effusion. The heart is not enlarged. The aorta is tortuous. The left hemidiaphragm is mildly elevated, stable. IMPRESSION: 1. No confluent infiltrates. Electronically signed by: Tavon Smiley MD (09/25/2018 4:02 PM) [facility] DICTATED and SIGNED BY: AYESHA SMILEY MD DATE: 09/25/18 1602 PROCEDURE: CT HEAD WO CONTRAST CT HEAD WO CONTRAST Indication: Weakness for 4 days. Exposure: One or more of the following individualized dose reduction techniques were utilized for this examination: 1. Automated exposure control 2. Adjustment of the mA and/or kV according to patient size 3. Use of iterative reconstruction technique. Technique: Standard imaging without intravenous contrast. Comparison: None FINDINGS: There is a very small area of hypoattenuation of the left ravinder, may just be artifact. No evidence of acute intracranial hemorrhage, mass effect, midline shift or abnormal extra-axial fluid collection. Lee-white matter distinction is intact. The orbits appear symmetric. No evidence of prominent scalp swelling. The visualized sinuses demonstrate mild ethmoid and maxillary sinus mucosal thickening. No acute skull abnormality. IMPRESSION: 1. Small low-density focus within the left ravinder, may just be artifactual. If there is concern for acute ischemia at the ravinder, MRI could further evaluate. 2. No evidence of acute intracranial hemorrhage or mass effect. Electronically signed by: Vini Klein MD (09/25/2018 4:28 PM) [id number] DICTATED and SIGNED BY: VINI KLEIN MD DATE: 09/25/18 1628 PROCEDURE: ABDOMEN LTD EXAM: RIGHT UPPER QUADRANT ULTRASOUND. HISTORY: Right upper quadrant pain. COMPARISON: None. FINDINGS: Sonographic evaluation of the right upper quadrant was performed. The liver appears normal in parenchymal echotexture. There are no focal lesions. The gallbladder is partially contracted but otherwise unremarkable without evidence of stones, wall thickening or pericholecystic fluid. There is no sonographic Patel sign. The common duct measures 2 mm. The visualized portions of the head of the pancreas reveal no abnormality. The right kidney measures 11.2 cm. Right renal cortical echogenicity is mildly increased. Cortical thickness is preserved. There is no hydronephrosis. The visualized portions of the abdominal aorta and inferior vena cava are grossly patent and normal in caliber. IMPRESSION: 1. Mildly increased right renal cortical echogenicity suggests intrinsic renal disease. In the setting of pain, pyelonephritis could also be considered. Correlate with urinalysis. 2. The gallbladder is contracted but otherwise unremarkable. Electronically signed by: Tavon Smiley MD (09/25/2018 4:13 PM) [facility] DICTATED and SIGNED BY: AYESHA SIMLEY MD DATE: 09/25/18 2155 Course & Med Decision Making Course & Med Decision Making Pertinent Labs and Imaging studies reviewed. (See chart for details) This is a 48-year-old male patient presenting to the ED today complaining of generalized weakness as well as right upper quadrant abdominal pain, symptoms for 4 days. Patient also states he has not been using his insulin as well as his high blood pressure medications because he ran out and does not have money to buy them. EKG was negative, CT of the head was negative for any acute findings.results were discussed with Chest x-ray is negative. CBC within normal WBC, CMP with glucose of 465, anion gap is normal. Creatinine 1.4, BUN is normal. Urine noted for 40 ketones, no leukocytes, no nitrites. BP 175/100- BP medicines ordered Patient was given 2 L of IV fluid and 8 units of insulin. Blood glucose [address] Terry who accepted patient for admission Dragon Disclaimer Dragon Disclaimer This electronic medical record was generated, in whole or in part, using a voice recognition dictation system. Departure Departure Impression: Primary Impression: Hyperglycemia Additional Impressions: Uncontrolled hypertension Right upper quadrant pain Generalized weakness Disposition: ADMITTED INPATIENT Condition: STABLE Referrals: NO PCP (PCP) Problem Qualifiers ANKITA DELATORRE TERRITORY REPRESENTATIVE Sep 25, 2018 18:50
[2018-09-25] MEDS ORDERED: ONDANSETRON PF 4 MG/2 ML VIAL. IV PRN (19:00)
[2018-09-25] MEDS ORDERED: ACETAMINOPHEN 325 MG TABLET. PO PRN (19:00)
[2018-09-25] MEDS: IV NORMAL SALINE 1000ML BAG 1,000 ML IV SCH (19:06)
--- NOTE | 2018-09-25 19:19 | RAD ---
EXAM: Left hip, 2 views. HISTORY: Pain. COMPARISON: 01/05/2017. FINDINGS: 2 views of the left hip are obtained. There is near complete loss of the left hip joint space with severe degenerative subchondral sclerosis, subchondral cyst formation, marginal osteophytosis and superior acetabular and femoral head remodeling. There is surrounding heterotopic ossification and there are chronic fragment osteophyte. IMPRESSION: 1. Severe degenerative change involving the left hip with associated bony remodeling, increased compared to the prior study. 2. No acute osseous finding. Electronically signed by: Josselyn Canchola MD (09/25/2018 7:17 PM) [facility]
--- NOTE | 2018-09-25 19:30 | NUR ---
The patient, LILO ESTRADA, 48 y/o, M admitted by CARLEY DUEÑAS MD, was given written information regarding hospital policies, unit procedures and contact persons. Valuables were checked and left in the room.
[2018-09-25] MEDS: HYDROcodone/APAP 5/325MG 1 TAB TABLET PO PRN (20:56)
[2018-09-25] MEDS ORDERED: NAPROXEN 250 MG TABLET PO PRN (21:00)
[2018-09-25 21:28] VITALS: BP 174/100
[2018-09-25 23:00] VITALS: BP 145/85
[2018-09-25] MEDS: INSULIN GLARGINE 300 UNITS/3 ML INSULN.PEN. SQ SCH (23:05)
[2018-09-25] MEDS ORDERED: cloNIDine HCL 0.1 MG TABLET PO PRN (23:15)
[2018-09-25] MEDS ORDERED: NICOTINE 21MG PATCH. TD PRN (23:15)
[2018-09-26] VITALS (7 sets, daily range): BP systolic 133–157; BP diastolic 88–107
[2018-09-26] MEDS: KETOROLAC 15 MG/ML VIAL. IV PRN ×2 (00:32→08:31)
[2018-09-26] MEDS: HYDROcodone/APAP 5/325MG 1 TAB TABLET PO PRN ×6 (01:22→22:40)
[2018-09-26 03:56] LABS: BASO % 1 % (0-3); EOS # 0.2 x10^3/uL (0.0-0.7); EOS % 3 % (0-3); HEMATOCRIT 39.6 % (39.0-53.0); HEMOGLOBIN 13.1 g/dL (13.0-17.5); LYMPH # 1.9 x10^3/uL (1.0-4.8); LYMPH % 35 % (24-48); MEAN CORPUSCULAR HEMOGLOBIN 29 pg (25-35); MEAN CORPUSCULAR HGB CONC 33 g/dL (31-37); MEAN CORPUSCULAR VOLUME 87 fL (79-100); MONO # 0.6 x10^3/uL (0.0-1.1); MONO % 11 % (0-9); NEUT # 2.8 x10^3uL (1.8-7.7); NEUT % 50 % (31-73); PLATELET COUNT 211 x10^3/uL (140-400); RED BLOOD COUNT 4.57 x10^6/uL (4.30-5.70); RED CELL DISTRIBUTION WIDTH 14.2 % (11.5-14.5); WHITE BLOOD COUNT 5.5 x10^3/uL (4.0-11.0)
[2018-09-26 04:03] LABS: CALCIUM 8.6 mg/dL (8.5-10.1); CREATININE 0.9 mg/dL (0.7-1.3); GFR 108.1; POTASSIUM 4.5 mmol/L (3.5-5.1)
[2018-09-26] MEDS: IV NORMAL SALINE 1000ML BAG 1,000 ML IV SCH ×2 (05:27→15:26)
[2018-09-26] MEDS ORDERED: INSULIN LISPRO 300 UNITS/3 ML INSULN.PEN. SQ ONE (07:00)
[2018-09-26] MEDS: LISINOPRIL 20 MG TABLET PO SCH (08:27)
[2018-09-26] MEDS: INSULIN LISPRO 300 UNITS/3 ML INSULN.PEN. SQ SCH ×6 (08:36→17:08)
[2018-09-26] MEDS: hydroCHLOROthiazide 25 MG TABLET PO SCH (09:32)
[2018-09-26] MEDS: INSULIN GLARGINE 300 UNITS/3 ML INSULN.PEN. SQ SCH ×2 (09:37→21:00)
--- NOTE | 2018-09-26 09:56 | PDOC ---
PROGRESS NOTES Subjective Subjective No new complaints. He admits continued pain and stiffness in his left hip. Objective Objective Vital Signs Date Time Temp Pulse Resp B/P (MAP) Pulse Ox O2 Delivery O2 Flow Rate FiO2 09/26/18 09:32 Room Air 09/26/18 08:27 79 150/107 09/26/18 07:00 97.8 18 97 97.8 Intake and Output 09/26/18 07:00 Intake Total 4500 ml Balance 4500 ml Intake Oral 500 ml IV Total 2000 ml Blood Product IV Normal Saline Flush 2000 ml Physical Exam Physical Exam He is alert,supine in bed and seems to be in no acute distress. Dr. Ladd is not mainframe consultant. Assessment Assessment Problems Medical Problems: (1) Generalized weakness Status: Acute (2) Hyperglycemia Status: Acute (3) Right upper quadrant pain Status: Acute (4) Uncontrolled hypertension Status: Acute Plan Plan of Long-Term with out patient follow up by for consideration of left CORA. Comment Review of Relevant I have reviewed the following items andrez (where applicable) has been applied. Labs Laboratory Tests Test 09/25/18 15:27 09/25/18 15:34 09/25/18 16:45 09/25/18 18:15 Glucose (Fingerstick) 451 mg/dL (70-99) 117 mg/dL (70-99) White Blood Count 6.3 x10^3/uL (4.0-11.0) Red Blood Count 5.14 x10^6/uL (4.30-5.70) Hemoglobin 15.1 g/dL (13.0-17.5) Hematocrit 45.1 % (39.0-53.0) Mean Corpuscular Volume 88 fL (79-100) Mean Corpuscular Hemoglobin 29 pg (25-35) Mean Corpuscular Hemoglobin Concent 34 g/dL (31-37) Red Cell Distribution Width 14.5 % (11.5-14.5) Platelet Count 243 x10^3/uL (140-400) Neutrophils (%) (Auto) 52 % (31-73) Lymphocytes (%) (Auto) 33 % (24-48) Monocytes (%) (Auto) 13 % (0-9) Eosinophils (%) (Auto) 2 % (0-3) Basophils (%) (Auto) 1 % (0-3) Neutrophils # (Auto) 3.3 x10^3uL (1.8-7.7) Lymphocytes # (Auto) 2.1 x10^3/uL (1.0-4.8) Monocytes # (Auto) 0.8 x10^3/uL (0.0-1.1) Eosinophils # (Auto) 0.1 x10^3/uL (0.0-0.7) Basophils # (Auto) 0.0 x10^3/uL (0.0-0.2) Sodium Level 137 mmol/L (136-145) Potassium Level 4.3 mmol/L (3.5-5.1) Chloride Level 97 mmol/L (98-107) Carbon Dioxide Level 26 mmol/L (21-32) Anion Gap 14 (6-14) Blood Urea Nitrogen 20 mg/dL (8-26) Creatinine 1.4 mg/dL (0.7-1.3) Estimated GFR (Cockcroft-Gault) 64.9 BUN/Creatinine Ratio 14 (6-20) Glucose Level 465 mg/dL (70-99) Calcium Level 9.3 mg/dL (8.5-10.1) Magnesium Level 2.0 mg/dL (1.8-2.4) Total Bilirubin 0.4 mg/dL (0.2-1.0) Aspartate Amino Transf (AST/SGOT) 15 U/L (15-37) Alanine Aminotransferase (ALT/SGPT) 17 U/L (16-63) Alkaline Phosphatase 143 U/L (46-116) Creatine Kinase 138 U/L (39-308) Creatine Kinase MB (Mass) 1.7 ng/mL (0.0-3.6) Creatine Kinase MB Relative Index 1.2 % (0-4) Troponin I Quantitative < 0.017 ng/mL (0.000-0.055) RI-[id number]-Type Natriuretic Peptide 110 pg/mL (0-124) Total Protein 7.3 g/dL (6.4-8.2) Albumin 3.4 g/dL (3.4-5.0) Albumin/Globulin Ratio 0.9 (1.0-1.7) Lipase 115 U/L (73-393) Urine Collection Type Void Urine Color Yellow Urine Clarity Clear Urine pH 5.5 Urine Specific [place] 1.025 Urine Protein Negative mg/dL (NEG-TRACE) Urine Glucose (UA) >=1000 mg/dL (NEG) Urine Ketones (Stick) 40 mg/dL (NEG) Urine Blood Trace (NEG) Urine Nitrite Negative (NEG) Urine Bilirubin Negative (NEG) Urine Urobilinogen Dipstick 0.2 mg/dL (0.2 mg/dL) Urine Leukocyte Esterase Negative (NEG) Urine RBC 3-5 /HPF (0-2) Urine WBC 5-10 /HPF (0-4) Urine Squamous Epithelial Cells Mod /LPF Urine Bacteria 0 /HPF (0-FEW) Urine Trichomonas Present Urine Opiates Screen Neg (NEG) Urine Methadone Screen Neg (NEG) Urine Barbiturates Neg (NEG) Urine Phencyclidine Screen Neg (NEG) Urine Amphetamine/Methamphetamine Neg (NEG) Urine Benzodiazepines Screen Neg (NEG) Urine Cocaine Screen Pos (NEG) Urine Cannabinoids Screen Neg (NEG) Urine Ethyl Alcohol Neg (NEG) Test 09/25/18 19:59 09/26/18 03:35 09/26/18 08:08 Glucose (Fingerstick) 161 mg/dL (70-99) 272 mg/dL (70-99) White Blood Count 5.5 x10^3/uL (4.0-11.0) Red Blood Count 4.57 x10^6/uL (4.30-5.70) Hemoglobin 13.1 g/dL (13.0-17.5) Hematocrit 39.6 % (39.0-53.0) Mean Corpuscular Volume 87 fL (79-100) Mean Corpuscular Hemoglobin 29 pg (25-35) Mean Corpuscular Hemoglobin Concent 33 g/dL (31-37) Red Cell Distribution Width 14.2 % (11.5-14.5) Platelet Count 211 x10^3/uL (140-400) Neutrophils (%) (Auto) 50 % (31-73) Lymphocytes (%) (Auto) 35 % (24-48) Monocytes (%) (Auto) 11 % (0-9) Eosinophils (%) (Auto) 3 % (0-3) Basophils (%) (Auto) 1 % (0-3) Neutrophils # (Auto) 2.8 x10^3uL (1.8-7.7) Lymphocytes # (Auto) 1.9 x10^3/uL (1.0-4.8) Monocytes # (Auto) 0.6 x10^3/uL (0.0-1.1) Eosinophils # (Auto) 0.2 x10^3/uL (0.0-0.7) Basophils # (Auto) 0.0 x10^3/uL (0.0-0.2) Sodium Level 133 mmol/L (136-145) Potassium Level 4.5 mmol/L (3.5-5.1) Chloride Level 98 mmol/L (98-107) Carbon Dioxide Level 24 mmol/L (21-32) Anion Gap 11 (6-14) Blood Urea Nitrogen 16 mg/dL (8-26) Creatinine 0.9 mg/dL (0.7-1.3) Estimated GFR (Cockcroft-Gault) 108.1 Glucose Level 475 mg/dL (70-99) Calcium Level 8.6 mg/dL (8.5-10.1) Laboratory Tests Test 09/25/18 15:27 09/25/18 15:34 09/25/18 16:45 09/25/18 18:15 Glucose (Fingerstick) 451 mg/dL (70-99) 117 mg/dL (70-99) White Blood Count 6.3 x10^3/uL (4.0-11.0) Red Blood Count 5.14 x10^6/uL (4.30-5.70) Hemoglobin 15.1 g/dL (13.0-17.5) Hematocrit 45.1 % (39.0-53.0) Mean Corpuscular Volume 88 fL (79-100) Mean Corpuscular Hemoglobin 29 pg (25-35) Mean Corpuscular Hemoglobin Concent 34 g/dL (31-37) Red Cell Distribution Width 14.5 % (11.5-14.5) Platelet Count 243 x10^3/uL (140-400) Neutrophils (%) (Auto) 52 % (31-73) Lymphocytes (%) (Auto) 33 % (24-48) Monocytes (%) (Auto) 13 % (0-9) Eosinophils (%) (Auto) 2 % (0-3) Basophils (%) (Auto) 1 % (0-3) Neutrophils # (Auto) 3.3 x10^3uL (1.8-7.7) Lymphocytes # (Auto) 2.1 x10^3/uL (1.0-4.8) Monocytes # (Auto) 0.8 x10^3/uL (0.0-1.1) Eosinophils # (Auto) 0.1 x10^3/uL (0.0-0.7) Basophils # (Auto) 0.0 x10^3/uL (0.0-0.2) Sodium Level 137 mmol/L (136-145) Potassium Level 4.3 mmol/L (3.5-5.1) Chloride Level 97 mmol/L (98-107) Carbon Dioxide Level 26 mmol/L (21-32) Anion Gap 14 (6-14) Blood Urea Nitrogen 20 mg/dL (8-26) Creatinine 1.4 mg/dL (0.7-1.3) Estimated GFR (Cockcroft-Gault) 64.9 BUN/Creatinine Ratio 14 (6-20) Glucose Level 465 mg/dL (70-99) Calcium Level 9.3 mg/dL (8.5-10.1) Magnesium Level 2.0 mg/dL (1.8-2.4) Total Bilirubin 0.4 mg/dL (0.2-1.0) Aspartate Amino Transf (AST/SGOT) 15 U/L (15-37) Alanine Aminotransferase (ALT/SGPT) 17 U/L (16-63) Alkaline Phosphatase 143 U/L (46-116) Creatine Kinase 138 U/L (39-308) Creatine Kinase MB (Mass) 1.7 ng/mL (0.0-3.6) Creatine Kinase MB Relative Index 1.2 % (0-4) Troponin I Quantitative < 0.017 ng/mL (0.000-0.055) LH-Hdy-T-Type Natriuretic Peptide 110 pg/mL (0-124) Total Protein 7.3 g/dL (6.4-8.2) Albumin 3.4 g/dL (3.4-5.0) Albumin/Globulin Ratio 0.9 (1.0-1.7) Lipase 115 U/L (73-393) Urine Collection Type Void Urine Color Yellow Urine Clarity Clear Urine pH 5.5 Urine Specific [place] 1.025 Urine Protein Negative mg/dL (NEG-TRACE) Urine Glucose (UA) >=1000 mg/dL (NEG) Urine Ketones (Stick) 40 mg/dL (NEG) Urine Blood Trace (NEG) Urine Nitrite Negative (NEG) Urine Bilirubin Negative (NEG) Urine Urobilinogen Dipstick 0.2 mg/dL (0.2 mg/dL) Urine Leukocyte Esterase Negative (NEG) Urine RBC 3-5 /HPF (0-2) Urine WBC 5-10 /HPF (0-4) Urine Squamous Epithelial Cells Mod /LPF Urine Bacteria 0 /HPF (0-FEW) Urine Trichomonas Present Urine Opiates Screen Neg (NEG) Urine Methadone Screen Neg (NEG) Urine Barbiturates Neg (NEG) Urine Phencyclidine Screen Neg (NEG) Urine Amphetamine/Methamphetamine Neg (NEG) Urine Benzodiazepines Screen Neg (NEG) Urine Cocaine Screen Pos (NEG) Urine Cannabinoids Screen Neg (NEG) Urine Ethyl Alcohol Neg (NEG) Test 09/25/18 19:59 09/26/18 03:35 09/26/18 08:08 Glucose (Fingerstick) 161 mg/dL (70-99) 272 mg/dL (70-99) White Blood Count 5.5 x10^3/uL (4.0-11.0) Red Blood Count 4.57 x10^6/uL (4.30-5.70) Hemoglobin 13.1 g/dL (13.0-17.5) Hematocrit 39.6 % (39.0-53.0) Mean Corpuscular Volume 87 fL (79-100) Mean Corpuscular Hemoglobin 29 pg (25-35) Mean Corpuscular Hemoglobin Concent 33 g/dL (31-37) Red Cell Distribution Width 14.2 % (11.5-14.5) Platelet Count 211 x10^3/uL (140-400) Neutrophils (%) (Auto) 50 % (31-73) Lymphocytes (%) (Auto) 35 % (24-48) Monocytes (%) (Auto) 11 % (0-9) Eosinophils (%) (Auto) 3 % (0-3) Basophils (%) (Auto) 1 % (0-3) Neutrophils # (Auto) 2.8 x10^3uL (1.8-7.7) Lymphocytes # (Auto) 1.9 x10^3/uL (1.0-4.8) Monocytes # (Auto) 0.6 x10^3/uL (0.0-1.1) Eosinophils # (Auto) 0.2 x10^3/uL (0.0-0.7) Basophils # (Auto) 0.0 x10^3/uL (0.0-0.2) Sodium Level 133 mmol/L (136-145) Potassium Level 4.5 mmol/L (3.5-5.1) Chloride Level 98 mmol/L (98-107) Carbon Dioxide Level 24 mmol/L (21-32) Anion Gap 11 (6-14) Blood Urea Nitrogen 16 mg/dL (8-26) Creatinine 0.9 mg/dL (0.7-1.3) Estimated GFR (Cockcroft-Gault) 108.1 Glucose Level 475 mg/dL (70-99) Calcium Level 8.6 mg/dL (8.5-10.1) Medications Current Medications Sodium Chloride 1,000 ml @ 1,000 mls/hr 1X ONCE IV Last administered on 09/25/18 15:48; Start 09/25/18 at 15:45; Stop 09/25/18 at 16:44; Status DC Sodium Chloride 1,000 ml @ 1,000 mls/hr 1X ONCE IV Last administered on 09/25/18at 15:48; Start 09/25/18 at 15:45; Stop 09/25/18 at 16:44; Status DC Insulin Human Regular (HumuLIN R VIAL) 8 unit 1X ONCE IV Last administered on 09/25/18 17:25; Start 09/25/18 at 17:00; Stop 09/25/18 at 17:01; Status DC Acetaminophen/ Hydrocodone Bitart (Lortab 5/325) 2 tab 1X ONCE PO Last administered on 09/25/18at 19:04; Start 09/25/18 at 18:30; Stop 09/25/18 at 18:31; Status DC Naproxen (Naprosyn) 500 mg 1X STAT PO Last administered on 09/25/18at 19:05; Start 09/25/18 at 18:17; Stop 09/25/18 at 18:22; Status DC Insulin Human Lispro (HumaLOG) 0-9 UNITS TIDWMEALS SQ Last administered on 09/26/18at 08:36; Start 09/26/18 at 08:00 Dextrose (Dextrose 50%-Water Syringe) 12.5 gm PRN Q15MIN PRN IV SEE COMMENTS; Start 09/25/18 at 18:45 Insulin Glargine (Lantus) 60 units QHS SQ Last administered on 09/25/18at 23:05; Start 09/25/18 at 21:00 Insulin Human Lispro (HumaLOG) 30 units TIDWMEALS SQ Last administered on 09/26/18 08:36; Start 09/26/18 at 08:00 Sodium Chloride 1,000 ml @ 100 mls/hr Q10H IV Last administered on 09/26/18 05:27; Start 09/25/18 at 18:45 Labetalol HCl (Normodyne Iv Push) 20 mg PRN Q2HR PRN IVP HYPERTENSION; Start 09/25/18 at 18:45; Stop 09/25/18 at 23:19; Status DC Acetaminophen/ Hydrocodone Bitart (Lortab 5/325) 1 tab PRN Q4HRS PRN PO PAIN L ast administered on 09/26/18at 09:32; Start 09/25/18 at 18:45 Zolpidem Tartrate (Ambien) 5 mg PRN QHS PRN PO INSOMNIA; Start 09/25/18 at 18:45 Naproxen (Naprosyn) 250 mg PRN BID PRN PO INFLAMMATION; Start 09/25/18 at 21:00 Acetaminophen/ Hydrocodone Bitart (Lortab 5/325) 1 tab PRN Q6HRS PRN PO PAIN; Start 09/25/18 at 18:45; Status UNV Lisinopril (Prinivil) 20 mg DAILY PO Last administered on 09/26/18 08:27; Start 09/26/18 at 09:00 Ketorolac Tromethamine (Toradol 15mg Vial) 15 mg PRN Q6HRS PRN IV PAIN MILD/IN FLAMMATION Last administered on 09/26/18 08:31; Start 09/25/18 at 18:45; Stop 09/30/18 at 18:44 Ondansetron HCl (Zofran) 4 mg PRN Q8HRS PRN IV NAUSEA/VOMITING; Start 09/25/18 at 19:00; Stop 09/26/18 at 18:59 Acetaminophen (Tylenol) 650 mg PRN Q4HRS PRN PO FEVER; Start 09/25/18 at 19:00; Stop 09/26/18 at 18:59 Clonidine HCl (Catapres) 0.1 mg PRN Q1HR PRN PO HYPERTENSION; Start 09/25/18 at 23:15 Nicotine (Nicoderm Cq 21mg) 1 patch PRN DAILY PRN TD SMOKING CESSATION; Start 09/25/18 at 23:15 Insulin Human Lispro (HumaLOG) 25 units 1X ONCE SQ Last administered on 09/26/18at 06:52; Start 09/26/18 at 07:00; Stop 09/26/18 at 07:01; Status DC Insulin Glargine (Lantus) 20 units DAILY SQ Last administered on 09/26/18at 09:37; Start 09/26/18 at 09:00 Hydrochlorothiazide (Hydrodiuril) 25 mg DAILY PO Last administered on 09/26/18at 09:32; Start 09/26/18 at 09:00 Active Scripts Active [place] 5-325 Tablet (Acetaminophen/Hydrocodone Bitart) 1 Each Tablet 1 Tab PO PRN Q6HRS PRN Penicillin V Potassium 500 Mg Tablet 1 Tab PO QID Peridex (Chlorhexidine Gluconate) 15 Ml Mouthwash 15 Ml PO BID Polytrim Eye Drops (Polymyxin B Sulf/Trimethoprim) 10 Ml Drops 1 Drop LEFTEYE Q6HRS Clindamycin Hcl 300 Mg Capsule 1 Cap PO TID Lisinopril 20 Mg Tablet 1 Tab PO DAILY Levemir Flextouch (Insulin Detemir) 100 Unit/1 Ml Insuln.pen 70 Unit SQ QHS 30 Days Hydrocodone-Apap 10-325 (Hydrocodone Bit/Acetaminophen) 1 Each Tablet 1 Tab PO QID PRN Novolog Flexpen (Insulin Aspart) 100 Unit/1 Ml Insuln.pen 30 Units SQ TIDWMEALS 30 Days Reported Vitamin B-12 (Cyanocobalamin (Vitamin B-12)) 1,000 Mcg Tablet 1 Tab PO DAILY Vitals/I & O Vital Sign - Last 24 Hours 09/25/18 09/25/18 09/25/18 09/25/18 15:23 15:58 16:20 16:50 Temp 98.2 98.2 Pulse 98 84 87 84 Resp 16 19 B/P (MAP) 175/100 (125) Pulse Ox 99 100 97 O2 Delivery Room Air 09/25/18 09/25/18 09/25/18 09/25/18 17:20 19:04 19:12 19:47 Pulse 81 87 84 Resp 20 20 12 Pulse Ox 97 O2 Delivery Room Air 09/25/18 09/25/18 09/25/18 09/25/18 20:30 20:56 21:28 23:00 Temp 98.1 98.2 98.1 98.2 Pulse 82 89 Resp 18 18 B/P (MAP) 174/100 (124) 145/85 (105) Pulse Ox 97 97 97 O2 Delivery Room Air Room Air Room Air 09/26/18 09/26/18 09/26/18 09/26/18 01:22 03:00 05:25 06:25 Temp 98.8 98.8 Pulse 86 Resp 18 B/P (MAP) 157/96 (116) Pulse Ox 97 100 100 100 O2 Delivery Room Air Room Air Room Air 09/26/18 09/26/18 09/26/18 09/26/18 07:00 08:00 08:27 09:32 Temp 97.8 97.8 Pulse 79 79 Resp 18 B/P (MAP) 150/107 (121) 150/107 Pulse Ox 97 O2 Delivery Room Air Room Air Room Air Intake and Output 09/25/18 09/25/18 09/26/18 15:00 23:00 07:00 Intake Total 4000 ml 500 ml Balance 4000 ml 500 ml JULIO CESAR POLANCO MD Sep 26, 2018 09:56
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
--- NOTE | 2018-09-26 11:40 | PDOC ---
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 Ladd as outpatient-the service is out of town - physiatry Plan start Lantus 20 daily at daytime, aside from the 60 units daily at bedtime Start HCTZ - already on lisinopril 20 once a day for the high blood pressure Consults social work/give resources for rehabilitation regarding cocaine use Dr. Ladd as outpatient I will try to call the daughter Sharda [phone] Vitals Vitals Vital Signs Date Time Temp Pulse Resp B/P (MAP) Pulse Ox O2 Delivery O2 Flow Rate FiO2 09/26/18 10:32 Room Air 09/26/18 08:27 79 150/107 09/26/18 07:00 97.8 18 97 97.8 Physical Exam General: Alert, Oriented X3, Cooperative, No acute distress Heart: Regular rate, Normal S1, Normal S2 Lungs: Clear Abdomen: Normal bowel sounds, Soft, No tenderness, No hepatosplenomegaly, No masses Extremities: No clubbing, No cyanosis, No edema, Normal pulses, No tenderness/swelling Skin: No rashes, No breakdown, No significant lesion Labs LABS Laboratory Tests Test 09/25/18 15:27 09/25/18 15:34 09/25/18 16:45 09/25/18 18:15 Glucose (Fingerstick) 451 mg/dL (70-99) 117 mg/dL (70-99) White Blood Count 6.3 x10^3/uL (4.0-11.0) Red Blood Count 5.14 x10^6/uL (4.30-5.70) Hemoglobin 15.1 g/dL (13.0-17.5) Hematocrit 45.1 % (39.0-53.0) Mean Corpuscular Volume 88 fL (79-100) Mean Corpuscular Hemoglobin 29 pg (25-35) Mean Corpuscular Hemoglobin Concent 34 g/dL (31-37) Red Cell Distribution Width 14.5 % (11.5-14.5) Platelet Count 243 x10^3/uL (140-400) Neutrophils (%) (Auto) 52 % (31-73) Lymphocytes (%) (Auto) 33 % (24-48) Monocytes (%) (Auto) 13 % (0-9) Eosinophils (%) (Auto) 2 % (0-3) Basophils (%) (Auto) 1 % (0-3) Neutrophils # (Auto) 3.3 x10^3uL (1.8-7.7) Lymphocytes # (Auto) 2.1 x10^3/uL (1.0-4.8) Monocytes # (Auto) 0.8 x10^3/uL (0.0-1.1) Eosinophils # (Auto) 0.1 x10^3/uL (0.0-0.7) Basophils # (Auto) 0.0 x10^3/uL (0.0-0.2) Sodium Level 137 mmol/L (136-145) Potassium Level 4.3 mmol/L (3.5-5.1) Chloride Level 97 mmol/L (98-107) Carbon Dioxide Level 26 mmol/L (21-32) Anion Gap 14 (6-14) Blood Urea Nitrogen 20 mg/dL (8-26) Creatinine 1.4 mg/dL (0.7-1.3) Estimated GFR (Cockcroft-Gault) 64.9 BUN/Creatinine Ratio 14 (6-20) Glucose Level 465 mg/dL (70-99) Calcium Level 9.3 mg/dL (8.5-10.1) Magnesium Level 2.0 mg/dL (1.8-2.4) Total Bilirubin 0.4 mg/dL (0.2-1.0) Aspartate Amino Transf (AST/SGOT) 15 U/L (15-37) Alanine Aminotransferase (ALT/SGPT) 17 U/L (16-63) Alkaline Phosphatase 143 U/L (46-116) Creatine Kinase 138 U/L (39-308) Creatine Kinase MB (Mass) 1.7 ng/mL (0.0-3.6) Creatine Kinase MB Relative Index 1.2 % (0-4) Troponin I Quantitative < 0.017 ng/mL (0.000-0.055) JN-Kyd-Z-Type Natriuretic Peptide 110 pg/mL (0-124) Total Protein 7.3 g/dL (6.4-8.2) Albumin 3.4 g/dL (3.4-5.0) Albumin/Globulin Ratio 0.9 (1.0-1.7) Lipase 115 U/L (73-393) Urine Collection Type Void Urine Color Yellow Urine Clarity Clear Urine pH 5.5 Urine Specific [place] 1.025 Urine Protein Negative mg/dL (NEG-TRACE) Urine Glucose (UA) >=1000 mg/dL (NEG) Urine Ketones (Stick) 40 mg/dL (NEG) Urine Blood Trace (NEG) Urine Nitrite Negative (NEG) Urine Bilirubin Negative (NEG) Urine Urobilinogen Dipstick 0.2 mg/dL (0.2 mg/dL) Urine Leukocyte Esterase Negative (NEG) Urine RBC 3-5 /HPF (0-2) Urine WBC 5-10 /HPF (0-4) Urine Squamous Epithelial Cells Mod /LPF Urine Bacteria 0 /HPF (0-FEW) Urine Trichomonas Present Urine Opiates Screen Neg (NEG) Urine Methadone Screen Neg (NEG) Urine Barbiturates Neg (NEG) Urine Phencyclidine Screen Neg (NEG) Urine Amphetamine/Methamphetamine Neg (NEG) Urine Benzodiazepines Screen Neg (NEG) Urine Cocaine Screen Pos (NEG) Urine Cannabinoids Screen Neg (NEG) Urine Ethyl Alcohol Neg (NEG) Test 09/25/18 19:59 09/26/18 03:35 09/26/18 08:08 09/26/18 10:26 Glucose (Fingerstick) 161 mg/dL (70-99) 272 mg/dL (70-99) 73 mg/dL (70-99) White Blood Count 5.5 x10^3/uL (4.0-11.0) Red Blood Count 4.57 x10^6/uL (4.30-5.70) Hemoglobin 13.1 g/dL (13.0-17.5) Hematocrit 39.6 % (39.0-53.0) Mean Corpuscular Volume 87 fL (79-100) Mean Corpuscular Hemoglobin 29 pg (25-35) Mean Corpuscular Hemoglobin Concent 33 g/dL (31-37) Red Cell Distribution Width 14.2 % (11.5-14.5) Platelet Count 211 x10^3/uL (140-400) Neutrophils (%) (Auto) 50 % (31-73) Lymphocytes (%) (Auto) 35 % (24-48) Monocytes (%) (Auto) 11 % (0-9) Eosinophils (%) (Auto) 3 % (0-3) Basophils (%) (Auto) 1 % (0-3) Neutrophils # (Auto) 2.8 x10^3uL (1.8-7.7) Lymphocytes # (Auto) 1.9 x10^3/uL (1.0-4.8) Monocytes # (Auto) 0.6 x10^3/uL (0.0-1.1) Eosinophils # (Auto) 0.2 x10^3/uL (0.0-0.7) Basophils # (Auto) 0.0 x10^3/uL (0.0-0.2) Sodium Level 133 mmol/L (136-145) Potassium Level 4.5 mmol/L (3.5-5.1) Chloride Level 98 mmol/L (98-107) Carbon Dioxide Level 24 mmol/L (21-32) Anion Gap 11 (6-14) Blood Urea Nitrogen 16 mg/dL (8-26) Creatinine 0.9 mg/dL (0.7-1.3) Estimated GFR (Cockcroft-Gault) 108.1 Glucose Level 475 mg/dL (70-99) Calcium Level 8.6 mg/dL (8.5-10.1) Review of Systems Review of Systems A 14 point ROS was completed with the following noted as positive: Other systems reviewed and negative. \CONSTITUTIONAL: No fever or chills EYES: No recent changes SKIN: No rash or itching CARDIOVASCULAR: No chest pain, syncope, palpitations, or edema RESPIRATORY: No SOB or cough GASTROINTESTINAL: No nausea, vomiting or abdominal pain NEUROLOGICAL: No headaches or weakness ENDOCRINE: No cold or heat intolerance GENITOURINARY: No urgency or frequency of urination MUSCULOSKELETAL: No back pain or joint pain LYMPHATICS: No enlarged lymph nodes PSYCHIATRIC: No anxiety or depression Assessment and Plan Assessmemt and Plan Problems Medical Problems: (1) Generalized weakness Status: Acute (2) Hyperglycemia Status: Acute (3) Right upper quadrant pain Status: Acute (4) Uncontrolled hypertension Status: Acute Comment Review of Relevant I have reviewed the following items andrez (where applicable) has been applied. Labs Laboratory Tests Test 09/25/18 15:27 09/25/18 15:34 09/25/18 16:45 09/25/18 18:15 Glucose (Fingerstick) 451 mg/dL (70-99) 117 mg/dL (70-99) White Blood Count 6.3 x10^3/uL (4.0-11.0) Red Blood Count 5.14 x10^6/uL (4.30-5.70) Hemoglobin 15.1 g/dL (13.0-17.5) Hematocrit 45.1 % (39.0-53.0) Mean Corpuscular Volume 88 fL (79-100) Mean Corpuscular Hemoglobin 29 pg (25-35) Mean Corpuscular Hemoglobin Concent 34 g/dL (31-37) Red Cell Distribution Width 14.5 % (11.5-14.5) Platelet Count 243 x10^3/uL (140-400) Neutrophils (%) (Auto) 52 % (31-73) Lymphocytes (%) (Auto) 33 % (24-48) Monocytes (%) (Auto) 13 % (0-9) Eosinophils (%) (Auto) 2 % (0-3) Basophils (%) (Auto) 1 % (0-3) Neutrophils # (Auto) 3.3 x10^3uL (1.8-7.7) Lymphocytes # (Auto) 2.1 x10^3/uL (1.0-4.8) Monocytes # (Auto) 0.8 x10^3/uL (0.0-1.1) Eosinophils # (Auto) 0.1 x10^3/uL (0.0-0.7) Basophils # (Auto) 0.0 x10^3/uL (0.0-0.2) Sodium Level 137 mmol/L (136-145) Potassium Level 4.3 mmol/L (3.5-5.1) Chloride Level 97 mmol/L (98-107) Carbon Dioxide Level 26 mmol/L (21-32) Anion Gap 14 (6-14) Blood Urea Nitrogen 20 mg/dL (8-26) Creatinine 1.4 mg/dL (0.7-1.3) Estimated GFR (Cockcroft-Gault) 64.9 BUN/Creatinine Ratio 14 (6-20) Glucose Level 465 mg/dL (70-99) Calcium Level 9.3 mg/dL (8.5-10.1) Magnesium Level 2.0 mg/dL (1.8-2.4) Total Bilirubin 0.4 mg/dL (0.2-1.0) Aspartate Amino Transf (AST/SGOT) 15 U/L (15-37) Alanine Aminotransferase (ALT/SGPT) 17 U/L (16-63) Alkaline Phosphatase 143 U/L (46-116) Creatine Kinase 138 U/L (39-308) Creatine Kinase MB (Mass) 1.7 ng/mL (0.0-3.6) Creatine Kinase MB Relative Index 1.2 % (0-4) Troponin I Quantitative < 0.017 ng/mL (0.000-0.055) PC-Uhm-J-Type Natriuretic Peptide 110 pg/mL (0-124) Total Protein 7.3 g/dL (6.4-8.2) Albumin 3.4 g/dL (3.4-5.0) Albumin/Globulin Ratio 0.9 (1.0-1.7) Lipase 115 U/L (73-393) Urine Collection Type Void Urine Color Yellow Urine Clarity Clear Urine pH 5.5 Urine Specific [place] 1.025 Urine Protein Negative mg/dL (NEG-TRACE) Urine Glucose (UA) >=1000 mg/dL (NEG) Urine Ketones (Stick) 40 mg/dL (NEG) Urine Blood Trace (NEG) Urine Nitrite Negative (NEG) Urine Bilirubin Negative (NEG) Urine Urobilinogen Dipstick 0.2 mg/dL (0.2 mg/dL) Urine Leukocyte Esterase Negative (NEG) Urine RBC 3-5 /HPF (0-2) Urine WBC 5-10 /HPF (0-4) Urine Squamous Epithelial Cells Mod /LPF Urine Bacteria 0 /HPF (0-FEW) Urine Trichomonas Present Urine Opiates Screen Neg (NEG) Urine Methadone Screen Neg (NEG) Urine Barbiturates Neg (NEG) Urine Phencyclidine Screen Neg (NEG) Urine Amphetamine/Methamphetamine Neg (NEG) Urine Benzodiazepines Screen Neg (NEG) Urine Cocaine Screen Pos (NEG) Urine Cannabinoids Screen Neg (NEG) Urine Ethyl Alcohol Neg (NEG) Test 09/25/18 19:59 09/26/18 03:35 09/26/18 08:08 09/26/18 10:26 Glucose (Fingerstick) 161 mg/dL (70-99) 272 mg/dL (70-99) 73 mg/dL (70-99) White Blood Count 5.5 x10^3/uL (4.0-11.0) Red Blood Count 4.57 x10^6/uL (4.30-5.70) Hemoglobin 13.1 g/dL (13.0-17.5) Hematocrit 39.6 % (39.0-53.0) Mean Corpuscular Volume 87 fL (79-100) Mean Corpuscular Hemoglobin 29 pg (25-35) Mean Corpuscular Hemoglobin Concent 33 g/dL (31-37) Red Cell Distribution Width 14.2 % (11.5-14.5) Platelet Count 211 x10^3/uL (140-400) Neutrophils (%) (Auto) 50 % (31-73) Lymphocytes (%) (Auto) 35 % (24-48) Monocytes (%) (Auto) 11 % (0-9) Eosinophils (%) (Auto) 3 % (0-3) Basophils (%) (Auto) 1 % (0-3) Neutrophils # (Auto) 2.8 x10^3uL (1.8-7.7) Lymphocytes # (Auto) 1.9 x10^3/uL (1.0-4.8) Monocytes # (Auto) 0.6 x10^3/uL (0.0-1.1) Eosinophils # (Auto) 0.2 x10^3/uL (0.0-0.7) Basophils # (Auto) 0.0 x10^3/uL (0.0-0.2) Sodium Level 133 mmol/L (136-145) Potassium Level 4.5 mmol/L (3.5-5.1) Chloride Level 98 mmol/L (98-107) Carbon Dioxide Level 24 mmol/L (21-32) Anion Gap 11 (6-14) Blood Urea Nitrogen 16 mg/dL (8-26) Creatinine 0.9 mg/dL (0.7-1.3) Estimated GFR (Cockcroft-Gault) 108.1 Glucose Level 475 mg/dL (70-99) Calcium Level 8.6 mg/dL (8.5-10.1) Laboratory Tests Test 09/25/18 15:27 09/25/18 15:34 09/25/18 16:45 09/25/18 18:15 Glucose (Fingerstick) 451 mg/dL (70-99) 117 mg/dL (70-99) White Blood Count 6.3 x10^3/uL (4.0-11.0) Red Blood Count 5.14 x10^6/uL (4.30-5.70) Hemoglobin 15.1 g/dL (13.0-17.5) Hematocrit 45.1 % (39.0-53.0) Mean Corpuscular Volume 88 fL (79-100) Mean Corpuscular Hemoglobin 29 pg (25-35) Mean Corpuscular Hemoglobin Concent 34 g/dL (31-37) Red Cell Distribution Width 14.5 % (11.5-14.5) Platelet Count 243 x10^3/uL (140-400) Neutrophils (%) (Auto) 52 % (31-73) Lymphocytes (%) (Auto) 33 % (24-48) Monocytes (%) (Auto) 13 % (0-9) Eosinophils (%) (Auto) 2 % (0-3) Basophils (%) (Auto) 1 % (0-3) Neutrophils # (Auto) 3.3 x10^3uL (1.8-7.7) Lymphocytes # (Auto) 2.1 x10^3/uL (1.0-4.8) Monocytes # (Auto) 0.8 x10^3/uL (0.0-1.1) Eosinophils # (Auto) 0.1 x10^3/uL (0.0-0.7) Basophils # (Auto) 0.0 x10^3/uL (0.0-0.2) Sodium Level 137 mmol/L (136-145) Potassium Level 4.3 mmol/L (3.5-5.1) Chloride Level 97 mmol/L (98-107) Carbon Dioxide Level 26 mmol/L (21-32) Anion Gap 14 (6-14) Blood Urea Nitrogen 20 mg/dL (8-26) Creatinine 1.4 mg/dL (0.7-1.3) Estimated GFR (Cockcroft-Gault) 64.9 BUN/Creatinine Ratio 14 (6-20) Glucose Level 465 mg/dL (70-99) Calcium Level 9.3 mg/dL (8.5-10.1) Magnesium Level 2.0 mg/dL (1.8-2.4) Total Bilirubin 0.4 mg/dL (0.2-1.0) Aspartate Amino Transf (AST/SGOT) 15 U/L (15-37) Alanine Aminotransferase (ALT/SGPT) 17 U/L (16-63) Alkaline Phosphatase 143 U/L (46-116) Creatine Kinase 138 U/L (39-308) Creatine Kinase MB (Mass) 1.7 ng/mL (0.0-3.6) Creatine Kinase MB Relative Index 1.2 % (0-4) Troponin I Quantitative < 0.017 ng/mL (0.000-0.055) LP-Ozs-B-Type Natriuretic Peptide 110 pg/mL (0-124) Total Protein 7.3 g/dL (6.4-8.2) Albumin 3.4 g/dL (3.4-5.0) Albumin/Globulin Ratio 0.9 (1.0-1.7) Lipase 115 U/L (73-393) Urine Collection Type Void Urine Color Yellow Urine Clarity Clear Urine pH 5.5 Urine Specific [place] 1.025 Urine Protein Negative mg/dL (NEG-TRACE) Urine Glucose (UA) >=1000 mg/dL (NEG) Urine Ketones (Stick) 40 mg/dL (NEG) Urine Blood Trace (NEG) Urine Nitrite Negative (NEG) Urine Bilirubin Negative (NEG) Urine Urobilinogen Dipstick 0.2 mg/dL (0.2 mg/dL) Urine Leukocyte Esterase Negative (NEG) Urine RBC 3-5 /HPF (0-2) Urine WBC 5-10 /HPF (0-4) Urine Squamous Epithelial Cells Mod /LPF Urine Bacteria 0 /HPF (0-FEW) Urine Trichomonas Present Urine Opiates Screen Neg (NEG) Urine Methadone Screen Neg (NEG) Urine Barbiturates Neg (NEG) Urine Phencyclidine Screen Neg (NEG) Urine Amphetamine/Methamphetamine Neg (NEG) Urine Benzodiazepines Screen Neg (NEG) Urine Cocaine Screen Pos (NEG) Urine Cannabinoids Screen Neg (NEG) Urine Ethyl Alcohol Neg (NEG) Test 09/25/18 19:59 09/26/18 03:35 09/26/18 08:08 09/26/18 10:26 Glucose (Fingerstick) 161 mg/dL (70-99) 272 mg/dL (70-99) 73 mg/dL (70-99) White Blood Count 5.5 x10^3/uL (4.0-11.0) Red Blood Count 4.57 x10^6/uL (4.30-5.70) Hemoglobin 13.1 g/dL (13.0-17.5) Hematocrit 39.6 % (39.0-53.0) Mean Corpuscular Volume 87 fL (79-100) Mean Corpuscular Hemoglobin 29 pg (25-35) Mean Corpuscular Hemoglobin Concent 33 g/dL (31-37) Red Cell Distribution Width 14.2 % (11.5-14.5) Platelet Count 211 x10^3/uL (140-400) Neutrophils (%) (Auto) 50 % (31-73) Lymphocytes (%) (Auto) 35 % (24-48) Monocytes (%) (Auto) 11 % (0-9) Eosinophils (%) (Auto) 3 % (0-3) Basophils (%) (Auto) 1 % (0-3) Neutrophils # (Auto) 2.8 x10^3uL (1.8-7.7) Lymphocytes # (Auto) 1.9 x10^3/uL (1.0-4.8) Monocytes # (Auto) 0.6 x10^3/uL (0.0-1.1) Eosinophils # (Auto) 0.2 x10^3/uL (0.0-0.7) Basophils # (Auto) 0.0 x10^3/uL (0.0-0.2) Sodium Level 133 mmol/L (136-145) Potassium Level 4.5 mmol/L (3.5-5.1) Chloride Level 98 mmol/L (98-107) Carbon Dioxide Level 24 mmol/L (21-32) Anion Gap 11 (6-14) Blood Urea Nitrogen 16 mg/dL (8-26) Creatinine 0.9 mg/dL (0.7-1.3) Estimated GFR (Cockcroft-Gault) 108.1 Glucose Level 475 mg/dL (70-99) Calcium Level 8.6 mg/dL (8.5-10.1) Medications Current Medications Sodium Chloride 1,000 ml @ 1,000 mls/hr 1X ONCE IV Last administered on 09/25/18 15:48; Start 09/25/18 at 15:45; Stop 09/25/18 at 16:44; Status DC Sodium Chloride 1,000 ml @ 1,000 mls/hr 1X ONCE IV Last administered on 09/25/18 15:48; Start 09/25/18 at 15:45; Stop 09/25/18 at 16:44; Status DC Insulin Human Regular (HumuLIN R VIAL) 8 unit 1X ONCE IV Last administered on 09/25/18 17:25; Start 09/25/18 at 17:00; Stop 09/25/18 at 17:01; Status DC Acetaminophen/ Hydrocodone Bitart (Lortab 5/325) 2 tab 1X ONCE PO Last administered on 09/25/18 19:04; Start 09/25/18 at 18:30; Stop 09/25/18 at 18:31; Status DC Naproxen (Naprosyn) 500 mg 1X STAT PO Last administered on 09/25/18 19:05; Start 09/25/18 at 18:17; Stop 09/25/18 at 18:22; Status DC Insulin Human Lispro (HumaLOG) 0-9 UNITS TIDWMEALS SQ Last administered on 09/26/18at 08:36; Start 09/26/18 at 08:00 Dextrose (Dextrose 50%-Water Syringe) 12.5 gm PRN Q15MIN PRN IV SEE COMMENTS; Start 09/25/18 at 18:45 Insulin Glargine (Lantus) 60 units QHS SQ Last administered on 09/25/18at 23:05; Start 09/25/18 at 21:00 Insulin Human Lispro (HumaLOG) 30 units TIDWMEALS SQ Last administered on 09/26/18at 08:36; Start 09/26/18 at 08:00 Sodium Chloride 1,000 ml @ 100 mls/hr Q10H IV Last administered on 09/26/18at 05:27; Start 09/25/18 at 18:45 Labetalol HCl (Normodyne Iv Push) 20 mg PRN Q2HR PRN IVP HYPERTENSION; Start 09/25/18 at 18:45; Stop 09/25/18 at 23:19; Status DC Acetaminophen/ Hydrocodone Bitart (Lortab 5/325) 1 tab PRN Q4HRS PRN PO PAIN Last administered on 09/26/18at 09:32; Start 09/25/18 at 18:45 Zolpidem Tartrate (Ambien) 5 mg PRN QHS PRN PO INSOMNIA; Start 09/25/18 at 18:45 Naproxen (Naprosyn) 250 mg PRN BID PRN PO INFLAMMATION; Start 09/25/18 at 21:00 Acetaminophen/ Hydrocodone Bitart (Lortab 5/325) 1 tab PRN Q6HRS PRN PO PAIN; Start 09/25/18 at 18:45; Status UNV Lisinopril (Prinivil) 20 mg DAILY PO Last administered on 09/26/18at 08:27; Start 09/26/18 at 09:00 Ketorolac Tromethamine (Toradol 15mg Vial) 15 mg PRN Q6HRS PRN IV PAIN MILD/INFLAMMATION Last administered on 09/26/18at 08:31; Start 09/25/18 at 18:45; Stop 09/30/18 at 18:44 Ondansetron HCl (Zofran) 4 mg PRN Q8HRS PRN IV NAUSEA/VOMITING; Start 09/25/18 at 19:00; Stop 09/26/18 at 18:59 Acetaminophen (Tylenol) 650 mg PRN Q4HRS PRN PO FEVER; Start 09/25/18 at 19:00; Stop 09/26/18 at 18:59 Clonidine HCl (Catapres) 0.1 mg PRN Q1HR PRN PO HYPERTENSION; Start 09/25/18 at 23:15 Nicotine (Nicoderm Cq 21mg) 1 patch PRN DAILY PRN TD SMOKING CESSATION; Start 09/25/18 at 23:15 Insulin Human Lispro (HumaLOG) 25 units 1X ONCE SQ Last administered on 09/26/18at 06:52; Start 09/26/18 at 07:00; Stop 09/26/18 at 07:01; Status DC Insulin Glargine (Lantus) 20 units DAILY SQ Last administered on 09/26/18at 09:37; Start 09/26/18 at 09:00 Hydrochlorothiazide (Hydrodiuril) 25 mg DAILY PO Last administered on 09/26/18at 09:32; Start 09/26/18 at 09:00 Active Scripts Active [place] 5-325 Tablet (Acetaminophen/Hydrocodone Bitart) 1 Each Tablet 1 Tab PO PRN Q6HRS PRN Penicillin V Potassium 500 Mg Tablet 1 Tab PO QID Peridex (Chlorhexidine Gluconate) 15 Ml Mouthwash 15 Ml PO BID Polytrim Eye Drops (Polymyxin B Sulf/Trimethoprim) 10 Ml Drops 1 Drop LEFTEYE Q6HRS Clindamycin Hcl 300 Mg Capsule 1 Cap PO TID Lisinopril 20 Mg Tablet 1 Tab PO DAILY Levemir Flextouch (Insulin Detemir) 100 Unit/1 Ml Insuln.pen 70 Unit SQ QHS 30 Days Hydrocodone-Apap 10-325 (Hydrocodone Bit/Acetaminophen) 1 Each Tablet 1 Tab PO QID PRN Novolog Flexpen (Insulin Aspart) 100 Unit/1 Ml Insuln.pen 30 Units SQ TIDWMEALS 30 Days Reported Vitamin B-12 (Cyanocobalamin (Vitamin B-12)) 1,000 Mcg Tablet 1 Tab PO DAILY Vitals/I & O Vital Sign - Last 24 Hours 09/25/18 09/25/18 09/25/18 09/25/18 15:23 15:58 16:20 16:50 Temp 98.2 98.2 Pulse 98 84 87 84 Resp 16 18 18 19 B/P (MAP) 175/100 (125) Pulse Ox 99 100 97 O2 Delivery Room Air 09/25/18 09/25/18 09/25/18 09/25/18 17:20 19:04 19:12 19:47 Pulse 81 87 84 Resp 20 20 12 Pulse Ox 97 O2 Delivery Room Air 09/25/18 09/25/18 09/25/18 09/25/18 20:30 20:56 21:28 23:00 Temp 98.1 98.2 98.1 98.2 Pulse 82 89 Resp 18 18 B/P (MAP) 174/100 (124) 145/85 (105) Pulse Ox 97 97 97 O2 Delivery Room Air Room Air Room Air 09/26/18 09/26/18 09/26/18 09/26/18 01:22 03:00 05:25 06:25 Temp 98.8 98.8 Pulse 86 Resp 18 B/P (MAP) 157/96 (116) Pulse Ox 97 100 100 100 O2 Delivery Room Air Room Air 09/26/18 09/26/18 09/26/18 09/26/18 07:00 08:00 08:27 09:32 Temp 97.8 97.8 Pulse 79 79 Resp 18 B/P (MAP) 150/107 (121) 150/107 Pulse Ox 97 O2 Delivery Room Air Room Air Room Air 09/26/18 10:32 O2 Delivery Room Air Intake and Output 09/25/18 09/25/18 09/26/18 15:00 23:00 07:00 Intake Total 4000 ml 500 ml Balance 4000 ml 500 ml CARLEY DUEÑAS MD Sep 26, 2018 11:40
--- NOTE | 2018-09-26 21:00 | NUR ---
Patient refused his 2100 Lantus. Patient stated that he did not want to take the insulin because his blood sugar was too low. Blood sugar was 59 at 1999.
[2018-09-26] MEDS ORDERED: CALCIUM CARBONATE 500 MG TAB.CHEW PO PRN (22:30)
[2018-09-27] MEDS: IV NORMAL SALINE 1000ML BAG 1,000 ML IV SCH ×2 (01:10→10:45)
[2018-09-27 02:06] LABS: HEMOGLOBIN A1C 12.5 % (4.8-5.6)
[2018-09-27 03:00] VITALS: BP 150/99
[2018-09-27 07:00] VITALS: BP 153/101
[2018-09-27] MEDS: HYDROcodone/APAP 5/325MG 1 TAB TABLET PO PRN ×2 (08:17→12:54)
[2018-09-27] MEDS: hydroCHLOROthiazide 25 MG TABLET PO SCH (08:17)
[2018-09-27] MEDS: LISINOPRIL 20 MG TABLET PO SCH (08:19)
[2018-09-27] MEDS: INSULIN LISPRO 300 UNITS/3 ML INSULN.PEN. SQ SCH ×4 (08:23→11:50)
[2018-09-27] MEDS: INSULIN GLARGINE 300 UNITS/3 ML INSULN.PEN. SQ SCH (08:24)
--- NOTE | 2018-09-27 10:45 | PDOC ---
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 Ladd as outpatient-the service is out of town - physiatry Patient had some hypo-and hyperglycemic episodes last night Plan: dc Lantus 20 daily started on Friday Continue 60 units Lantus at bedtime We are waiting for PAT team to assess re his drug rec use His hemoglobin A1c's 12.5 He is agreeable to stay Discussed with RUTH Soriano Vitals Vitals Vital Signs Date Time Temp Pulse Resp B/P (MAP) Pulse Ox O2 Delivery O2 Flow Rate FiO2 09/27/18 09:17 Room Air 09/27/18 08:19 62 153/101 09/27/18 07:00 98.2 18 98 98.2 Physical Exam General: Alert, Oriented X3, Cooperative, No acute distress Heart: Regular rate, Normal S1, Normal S2 Lungs: Clear Abdomen: Normal bowel sounds, Soft, No tenderness, No hepatosplenomegaly, No masses Extremities: No clubbing, No cyanosis, No edema, Normal pulses, No tenderness/swelling Skin: No rashes, No breakdown, No significant lesion Labs LABS Laboratory Tests Test 09/26/18 11:45 09/26/18 16:25 09/26/18 18:18 09/26/18 20:03 Glucose (Fingerstick) 65 mg/dL (70-99) 119 mg/dL (70-99) 70 mg/dL (70-99) 57 mg/dL (70-99) Test 09/26/18 20:29 09/27/18 08:01 09/27/18 09:31 Glucose (Fingerstick) 109 mg/dL (70-99) 328 mg/dL (70-99) 249 mg/dL (70-99) Review of Systems Review of Systems A 14 point ROS was completed with the following noted as positive: Other systems reviewed and negative. \CONSTITUTIONAL: No fever or chills EYES: No recent changes SKIN: No rash or itching CARDIOVASCULAR: No chest pain, syncope, palpitations, or edema RESPIRATORY: No SOB or cough GASTROINTESTINAL: No nausea, vomiting or abdominal pain NEUROLOGICAL: No headaches or weakness ENDOCRINE: No cold or heat intolerance GENITOURINARY: No urgency or frequency of urination MUSCULOSKELETAL: No back pain or joint pain LYMPHATICS: No enlarged lymph nodes PSYCHIATRIC: No anxiety or depression Assessment and Plan Assessmemt and Plan Problems Medical Problems: (1) Generalized weakness Status: Acute (2) Hyperglycemia Status: Acute (3) Right upper quadrant pain Status: Acute (4) Uncontrolled hypertension Status: Acute Comment Review of Relevant I have reviewed the following items andrez (where applicable) has been applied. Labs Laboratory Tests Test 09/25/18 15:27 09/25/18 15:34 09/25/18 16:45 09/25/18 18:15 Glucose (Fingerstick) 451 mg/dL (70-99) 117 mg/dL (70-99) White Blood Count 6.3 x10^3/uL (4.0-11.0) Red Blood Count 5.14 x10^6/uL (4.30-5.70) Hemoglobin 15.1 g/dL (13.0-17.5) Hematocrit 45.1 % (39.0-53.0) Mean Corpuscular Volume 88 fL (79-100) Mean Corpuscular Hemoglobin 29 pg (25-35) Mean Corpuscular Hemoglobin Concent 34 g/dL (31-37) Red Cell Distribution Width 14.5 % (11.5-14.5) Platelet Count 243 x10^3/uL (140-400) Neutrophils (%) (Auto) 52 % (31-73) Lymphocytes (%) (Auto) 33 % (24-48) Monocytes (%) (Auto) 13 % (0-9) Eosinophils (%) (Auto) 2 % (0-3) Basophils (%) (Auto) 1 % (0-3) Neutrophils # (Auto) 3.3 x10^3uL (1.8-7.7) Lymphocytes # (Auto) 2.1 x10^3/uL (1.0-4.8) Monocytes # (Auto) 0.8 x10^3/uL (0.0-1.1) Eosinophils # (Auto) 0.1 x10^3/uL (0.0-0.7) Basophils # (Auto) 0.0 x10^3/uL (0.0-0.2) Sodium Level 137 mmol/L (136-145) Potassium Level 4.3 mmol/L (3.5-5.1) Chloride Level 97 mmol/L (98-107) Carbon Dioxide Level 26 mmol/L (21-32) Anion Gap 14 (6-14) Blood Urea Nitrogen 20 mg/dL (8-26) Creatinine 1.4 mg/dL (0.7-1.3) Estimated GFR (Cockcroft-Gault) 64.9 BUN/Creatinine Ratio 14 (6-20) Glucose Level 465 mg/dL (70-99) Hemoglobin A1c 12.5 % (4.8-5.6) Calcium Level 9.3 mg/dL (8.5-10.1) Magnesium Level 2.0 mg/dL (1.8-2.4) Total Bilirubin 0.4 mg/dL (0.2-1.0) Aspartate Amino Transf (AST/SGOT) 15 U/L (15-37) Alanine Aminotransferase (ALT/SGPT) 17 U/L (16-63) Alkaline Phosphatase 143 U/L (46-116) Creatine Kinase 138 U/L (39-308) Creatine Kinase MB (Mass) 1.7 ng/mL (0.0-3.6) Creatine Kinase MB Relative Index 1.2 % (0-4) Troponin I Quantitative < 0.017 ng/mL (0.000-0.055) RF-Yxm-L-Type Natriuretic Peptide 110 pg/mL (0-124) Total Protein 7.3 g/dL (6.4-8.2) Albumin 3.4 g/dL (3.4-5.0) Albumin/Globulin Ratio 0.9 (1.0-1.7) Lipase 115 U/L (73-393) Urine Collection Type Void Urine Color Yellow Urine Clarity Clear Urine pH 5.5 Urine Specific [place] 1.025 Urine Protein Negative mg/dL (NEG-TRACE) Urine Glucose (UA) >=1000 mg/dL (NEG) Urine Ketones (Stick) 40 mg/dL (NEG) Urine Blood Trace (NEG) Urine Nitrite Negative (NEG) Urine Bilirubin Negative (NEG) Urine Urobilinogen Dipstick 0.2 mg/dL (0.2 mg/dL) Urine Leukocyte Esterase Negative (NEG) Urine RBC 3-5 /HPF (0-2) Urine WBC 5-10 /HPF (0-4) Urine Squamous Epithelial Cells Mod /LPF Urine Bacteria 0 /HPF (0-FEW) Urine Trichomonas Present Urine Opiates Screen Neg (NEG) Urine Methadone Screen Neg (NEG) Urine Barbiturates Neg (NEG) Urine Phencyclidine Screen Neg (NEG) Urine Amphetamine/Methamphetamine Neg (NEG) Urine Benzodiazepines Screen Neg (NEG) Urine Cocaine Screen Pos (NEG) Urine Cannabinoids Screen Neg (NEG) Urine Ethyl Alcohol Neg (NEG) Test 09/25/18 19:59 09/26/18 03:35 09/26/18 05:34 09/26/18 08:08 Glucose (Fingerstick) 161 mg/dL (70-99) 446 mg/dL (70-99) 272 mg/dL (70-99) White Blood Count 5.5 x10^3/uL (4.0-11.0) Red Blood Count 4.57 x10^6/uL (4.30-5.70) Hemoglobin 13.1 g/dL (13.0-17.5) Hematocrit 39.6 % (39.0-53.0) Mean Corpuscular Volume 87 fL (79-100) Mean Corpuscular Hemoglobin 29 pg (25-35) Mean Corpuscular Hemoglobin Concent 33 g/dL (31-37) Red Cell Distribution Width 14.2 % (11.5-14.5) Platelet Count 211 x10^3/uL (140-400) Neutrophils (%) (Auto) 50 % (31-73) Lymphocytes (%) (Auto) 35 % (24-48) Monocytes (%) (Auto) 11 % (0-9) Eosinophils (%) (Auto) 3 % (0-3) Basophils (%) (Auto) 1 % (0-3) Neutrophils # (Auto) 2.8 x10^3uL (1.8-7.7) Lymphocytes # (Auto) 1.9 x10^3/uL (1.0-4.8) Monocytes # (Auto) 0.6 x10^3/uL (0.0-1.1) Eosinophils # (Auto) 0.2 x10^3/uL (0.0-0.7) Basophils # (Auto) 0.0 x10^3/uL (0.0-0.2) Sodium Level 133 mmol/L (136-145) Potassium Level 4.5 mmol/L (3.5-5.1) Chloride Level 98 mmol/L (98-107) Carbon Dioxide Level 24 mmol/L (21-32) Anion Gap 11 (6-14) Blood Urea Nitrogen 16 mg/dL (8-26) Creatinine 0.9 mg/dL (0.7-1.3) Estimated GFR (Cockcroft-Gault) 108.1 Glucose Level 475 mg/dL (70-99) Calcium Level 8.6 mg/dL (8.5-10.1) Test 09/26/18 10:26 09/26/18 11:45 09/26/18 16:25 09/26/18 18:18 Glucose (Fingerstick) 73 mg/dL (70-99) 65 mg/dL (70-99) 119 mg/dL (70-99) 70 mg/dL (70-99) Test 09/26/18 20:03 09/26/18 20:29 09/27/18 08:01 09/27/18 09:31 Glucose (Fingerstick) 57 mg/dL (70-99) 109 mg/dL (70-99) 328 mg/dL (70-99) 249 mg/dL (70-99) Laboratory Tests Test 09/26/18 11:45 09/26/18 16:25 09/26/18 18:18 09/26/18 20:03 Glucose (Fingerstick) 65 mg/dL (70-99) 119 mg/dL (70-99) 70 mg/dL (70-99) 57 mg/dL (70-99) Test 09/26/18 20:29 09/27/18 08:01 09/27/18 09:31 Glucose (Fingerstick) 109 mg/dL (70-99) 328 mg/dL (70-99) 249 mg/dL (70-99) Medications Current Medications Sodium Chloride 1,000 ml @ 1,000 mls/hr 1X ONCE IV Last administered on 09/25/18 15:48; Start 09/25/18 at 15:45; Stop 09/25/18 at 16:44; Status DC Sodium Chloride 1,000 ml @ 1,000 mls/hr 1X ONCE IV Last administered on 09/25/18at 15:48; Start 09/25/18 at 15:45; Stop 09/25/18 at 16:44; Status DC Insulin Human Regular (HumuLIN R VIAL) 8 unit 1X ONCE IV Last administered on 09/25/18 17:25; Start 09/25/18 at 17:00; Stop 09/25/18 at 17:01; Status DC Acetaminophen/ Hydrocodone Bitart (Lortab 5/325) 2 tab 1X ONCE PO Last administered on 09/25/18 19:04; Start 09/25/18 at 18:30; Stop 09/25/18 at 18:31; Status DC Naproxen (Naprosyn) 500 mg 1X STAT PO Last administered on 09/25/18at 19:05; Start 09/25/18 at 18:17; Stop 09/25/18 at 18:22; Status DC Insulin Human Lispro (HumaLOG) 0-9 UNITS TIDWMEALS SQ Last administered on 09/27/18 08:23; Start 09/26/18 at 08:00 Dextrose (Dextrose 50%-Water Syringe) 12.5 gm PRN Q15MIN PRN IV SEE COMMENTS; Start 09/25/18 at 18:45 Insulin Glargine (Lantus) 60 units QHS SQ Last administered on 09/25/18at 23:05; Start 09/25/18 at 21:00; Stop 09/27/18 at 08:25; Status DC Insulin Human Lispro (HumaLOG) 30 units TIDWMEALS SQ Last administered on 09/27/18at 08:24; Start 09/26/18 at 08:00 Sodium Chloride 1,000 ml @ 100 mls/hr Q10H IV Last administered on 09/27/18at 01:10; Start 09/25/18 at 18:45 Labetalol HCl (Normodyne Iv Push) 20 mg PRN Q2HR PRN IVP HYPERTENSION; Start 09/25/18 at 18:45; Stop 09/25/18 at 23:19; Status DC Acetaminophen/ Hydrocodone Bitart (Lortab 5/325) 1 tab PRN Q4HRS PRN PO PAIN Last administered on 09/27/18at 08:17; Start 09/25/18 at 18:45 Zolpidem Tartrate (Ambien) 5 mg PRN QHS PRN PO INSOMNIA; Start 09/25/18 at 18:45 Naproxen (Naprosyn) 250 mg PRN BID PRN PO INFLAMMATION; Start 09/25/18 at 21:00 Acetaminophen/ Hydrocodone Bitart (Lortab 5/325) 1 tab PRN Q6HRS PRN PO PAIN; Start 09/25/18 at 18:45; Status UNV Lisinopril (Prinivil) 20 mg DAILY PO Last administered on 09/27/18at 08:19; Start 09/26/18 at 09:00 Ketorolac Tromethamine (Toradol 15mg Vial) 15 mg PRN Q6HRS PRN IV PAIN MILD/INFLAMMATION Last administered on 09/26/18at 08:31; Start 09/25/18 at 18:45; Stop 09/30/18 at 18:44 Ondansetron HCl (Zofran) 4 mg PRN Q8HRS PRN IV NAUSEA/VOMITING; Start 09/25/18 at 19:00; Stop 09/26/18 at 18:59; Status DC Acetaminophen (Tylenol) 650 mg PRN Q4HRS PRN PO FEVER; Start 09/25/18 at 19:00; Stop 09/26/18 at 18:59; Status DC Clonidine HCl (Catapres) 0.1 mg PRN Q1HR PRN PO HYPERTENSION; Start 09/25/18 at 23:15 Nicotine (Nicoderm Cq 21mg) 1 patch PRN DAILY PRN TD SMOKING CESSATION Last administered on 09/26/18at 19:13; Start 09/25/18 at 23:15 Insulin Human Lispro (HumaLOG) 25 units 1X ONCE SQ Last administered on 09/26/18at 06:52; Start 09/26/18 at 07:00; Stop 09/26/18 at 07:01; Status DC Insulin Glargine (Lantus) 20 units DAILY SQ Last administered on 09/27/18at 08:24; Start 09/26/18 at 09:00; Stop 09/27/18 at 08:25; Status DC Hydrochlorothiazide (Hydrodiuril) 25 mg DAILY PO Last administered on 09/27/18at 08:17; Start 09/26/18 at 09:00 Calcium Carbonate/ Glycine (Tums) 500 mg PRN TID PRN PO INDIGESTION Last administered on 09/26/18at 22:39; Start 09/26/18 at 22:30 Insulin Glargine (Lantus) 70 units QHS SQ ; Start 09/27/18 at 21:00 Active Scripts Active [place] 5-325 Tablet (Acetaminophen/Hydrocodone Bitart) 1 Each Tablet 1 Tab PO PRN Q6HRS PRN Penicillin V Potassium 500 Mg Tablet 1 Tab PO QID Peridex (Chlorhexidine Gluconate) 15 Ml Mouthwash 15 Ml PO BID Polytrim Eye Drops (Polymyxin B Sulf/Trimethoprim) 10 Ml Drops 1 Drop LEFTEYE Q6HRS Clindamycin Hcl 300 Mg Capsule 1 Cap PO TID Lisinopril 20 Mg Tablet 1 Tab PO DAILY Levemir Flextouch (Insulin Detemir) 100 Unit/1 Ml Insuln.pen 70 Unit SQ QHS 30 Days Hydrocodone-Apap 10-325 (Hydrocodone Bit/Acetaminophen) 1 Each Tablet 1 Tab PO QID PRN Novolog Flexpen (Insulin Aspart) 100 Unit/1 Ml Insuln.pen 30 Units SQ TIDWMEALS 30 Days Reported Vitamin B-12 (Cyanocobalamin (Vitamin B-12)) 1,000 Mcg Tablet 1 Tab PO DAILY Vitals/I & O Vital Sign - Last 24 Hours 09/26/18 09/26/18 09/26/18 09/26/18 11:00 13:57 15:00 17:16 Temp 98.5 97.8 97.8 98.5 97.8 97.8 Pulse 84 82 82 Resp 18 18 B/P (MAP) 153/88 (109) 151/101 (118) 151/101 (118) Pulse Ox 97 98 98 O2 Delivery Room Air Room Air Room Air Room Air 09/26/18 09/26/18 09/26/18 09/26/18 18:05 19:00 20:00 22:40 Temp 98.2 98.2 Pulse 85 Resp 18 16 B/P (MAP) 134/88 (103) Pulse Ox 98 O2 Delivery Room Air Room Air Room Air 09/26/18 09/26/18 09/27/18 09/27/18 23:00 23:45 03:00 07:00 Temp 98.0 98.4 98.2 98.0 98.4 98.2 Pulse 89 79 62 Resp 18 16 18 18 B/P (MAP) 153/101 (118) 150/99 (116) 153/101 (118) Pulse Ox 97 99 99 98 O2 Delivery Room Air Room Air Room Air 09/27/18 09/27/18 09/27/18 09/27/18 08:00 08:17 08:19 09:17 Pulse 62 B/P (MAP) 153/101 O2 Delivery Room Air Room Air Room Air Intake and Output 09/26/18 09/26/18 09/27/18 14:59 22:59 06:59 Intake Total 150 ml 240 ml Output Total 200 ml 200 ml Balance -50 ml 40 ml CARLEY DUEÑAS MD Sep 27, 2018 10:45
[2018-09-27 11:00] VITALS: BP 124/91
[2018-09-27] MEDS ORDERED: INSU100I17 SQ (11:01)
[2018-09-27] MEDS ORDERED: HYDR-2145 PO (11:01)
[2018-09-27] MEDS ORDERED: LISI-334 PO (11:01)
[2018-09-27] MEDS ORDERED: INSU100I13 SQ (11:01)
--- NOTE | 2018-09-27 11:03 | PDOC3 ---
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, absence of cartilage) POSitive cocaine and marijuana in UDS Final Diagnosis Problems Medical Problems: (1) Generalized weakness Status: Acute (2) Hyperglycemia Status: Acute (3) Right upper quadrant pain Status: Acute (4) Uncontrolled hypertension Status: Acute Brief Hospital Course Allergies Allergies Coded Allergies Type Severity Reaction Last Updated Verified No Known Drug Allergies 09/12/13 No Vital Signs Vital Signs Date Time Temp Pulse Resp B/P (MAP) Pulse Ox O2 Delivery O2 Flow Rate FiO2 09/27/18 09:17 Room Air 09/27/18 08:19 62 153/101 09/27/18 07:00 98.2 18 98 98.2 Lab Results Laboratory Tests Test 09/25/18 15:27 09/25/18 15:34 09/25/18 16:45 09/25/18 18:15 Glucose (Fingerstick) 451 mg/dL (70-99) 117 mg/dL (70-99) White Blood Count 6.3 x10^3/uL (4.0-11.0) Red Blood Count 5.14 x10^6/uL (4.30-5.70) Hemoglobin 15.1 g/dL (13.0-17.5) Hematocrit 45.1 % (39.0-53.0) Mean Corpuscular Volume 88 fL (79-100) Mean Corpuscular Hemoglobin 29 pg (25-35) Mean Corpuscular Hemoglobin Concent 34 g/dL (31-37) Red Cell Distribution Width 14.5 % (11.5-14.5) Platelet Count 243 x10^3/uL (140-400) Neutrophils (%) (Auto) 52 % (31-73) Lymphocytes (%) (Auto) 33 % (24-48) Monocytes (%) (Auto) 13 % (0-9) Eosinophils (%) (Auto) 2 % (0-3) Basophils (%) (Auto) 1 % (0-3) Neutrophils # (Auto) 3.3 x10^3uL (1.8-7.7) Lymphocytes # (Auto) 2.1 x10^3/uL (1.0-4.8) Monocytes # (Auto) 0.8 x10^3/uL (0.0-1.1) Eosinophils # (Auto) 0.1 x10^3/uL (0.0-0.7) Basophils # (Auto) 0.0 x10^3/uL (0.0-0.2) Sodium Level 137 mmol/L (136-145) Potassium Level 4.3 mmol/L (3.5-5.1) Chloride Level 97 mmol/L (98-107) Carbon Dioxide Level 26 mmol/L (21-32) Anion Gap 14 (6-14) Blood Urea Nitrogen 20 mg/dL (8-26) Creatinine 1.4 mg/dL (0.7-1.3) Estimated GFR (Cockcroft-Gault) 64.9 BUN/Creatinine Ratio 14 (6-20) Glucose Level 465 mg/dL (70-99) Hemoglobin A1c 12.5 % (4.8-5.6) Calcium Level 9.3 mg/dL (8.5-10.1) Magnesium Level 2.0 mg/dL (1.8-2.4) Total Bilirubin 0.4 mg/dL (0.2-1.0) Aspartate Amino Transf (AST/SGOT) 15 U/L (15-37) Alanine Aminotransferase (ALT/SGPT) 17 U/L (16-63) Alkaline Phosphatase 143 U/L (46-116) Creatine Kinase 138 U/L (39-308) Creatine Kinase MB (Mass) 1.7 ng/mL (0.0-3.6) Creatine Kinase MB Relative Index 1.2 % (0-4) Troponin I Quantitative < 0.017 ng/mL (0.000-0.055) QQ-[id number]-Type Natriuretic Peptide 110 pg/mL (0-124) Total Protein 7.3 g/dL (6.4-8.2) Albumin 3.4 g/dL (3.4-5.0) Albumin/Globulin Ratio 0.9 (1.0-1.7) Lipase 115 U/L (73-393) Urine Collection Type Void Urine Color Yellow Urine Clarity Clear Urine pH 5.5 Urine Specific [place] 1.025 Urine Protein Negative mg/dL (NEG-TRACE) Urine Glucose (UA) >=1000 mg/dL (NEG) Urine Ketones (Stick) 40 mg/dL (NEG) Urine Blood Trace (NEG) Urine Nitrite Negative (NEG) Urine Bilirubin Negative (NEG) Urine Urobilinogen Dipstick 0.2 mg/dL (0.2 mg/dL) Urine Leukocyte Esterase Negative (NEG) Urine RBC 3-5 /HPF (0-2) Urine WBC 5-10 /HPF (0-4) Urine Squamous Epithelial Cells Mod /LPF Urine Bacteria 0 /HPF (0-FEW) Urine Trichomonas Present Urine Opiates Screen Neg (NEG) Urine Methadone Screen Neg (NEG) Urine Barbiturates Neg (NEG) Urine Phencyclidine Screen Neg (NEG) Urine Amphetamine/Methamphetamine Neg (NEG) Urine Benzodiazepines Screen Neg (NEG) Urine Cocaine Screen Pos (NEG) Urine Cannabinoids Screen Neg (NEG) Urine Ethyl Alcohol Neg (NEG) Test 09/25/18 19:59 09/26/18 03:35 09/26/18 05:34 09/26/18 08:08 Glucose (Fingerstick) 161 mg/dL (70-99) 446 mg/dL (70-99) 272 mg/dL (70-99) White Blood Count 5.5 x10^3/uL (4.0-11.0) Red Blood Count 4.57 x10^6/uL (4.30-5.70) Hemoglobin 13.1 g/dL (13.0-17.5) Hematocrit 39.6 % (39.0-53.0) Mean Corpuscular Volume 87 fL (79-100) Mean Corpuscular Hemoglobin 29 pg (25-35) Mean Corpuscular Hemoglobin Concent 33 g/dL (31-37) Red Cell Distribution Width 14.2 % (11.5-14.5) Platelet Count 211 x10^3/uL (140-400) Neutrophils (%) (Auto) 50 % (31-73) Lymphocytes (%) (Auto) 35 % (24-48) Monocytes (%) (Auto) 11 % (0-9) Eosinophils (%) (Auto) 3 % (0-3) Basophils (%) (Auto) 1 % (0-3) Neutrophils # (Auto) 2.8 x10^3uL (1.8-7.7) Lymphocytes # (Auto) 1.9 x10^3/uL (1.0-4.8) Monocytes # (Auto) 0.6 x10^3/uL (0.0-1.1) Eosinophils # (Auto) 0.2 x10^3/uL (0.0-0.7) Basophils # (Auto) 0.0 x10^3/uL (0.0-0.2) Sodium Level 133 mmol/L (136-145) Potassium Level 4.5 mmol/L (3.5-5.1) Chloride Level 98 mmol/L (98-107) Carbon Dioxide Level 24 mmol/L (21-32) Anion Gap 11 (6-14) Blood Urea Nitrogen 16 mg/dL (8-26) Creatinine 0.9 mg/dL (0.7-1.3) Estimated GFR (Cockcroft-Gault) 108.1 Glucose Level 475 mg/dL (70-99) Calcium Level 8.6 mg/dL (8.5-10.1) Test 09/26/18 10:26 09/26/18 11:45 09/26/18 16:25 09/26/18 18:18 Glucose (Fingerstick) 73 mg/dL (70-99) 65 mg/dL (70-99) 119 mg/dL (70-99) 70 mg/dL (70-99) Test 09/26/18 20:03 09/26/18 20:29 09/27/18 08:01 09/27/18 09:31 Glucose (Fingerstick) 57 mg/dL (70-99) 109 mg/dL (70-99) 328 mg/dL (70-99) 249 mg/dL (70-99) Laboratory Tests Test 09/26/18 11:45 09/26/18 16:25 09/26/18 18:18 09/26/18 20:03 Glucose (Fingerstick) 65 mg/dL (70-99) 119 mg/dL (70-99) 70 mg/dL (70-99) 57 mg/dL (70-99) Test 09/26/18 20:29 09/27/18 08:01 09/27/18 09:31 Glucose (Fingerstick) 109 mg/dL (70-99) 328 mg/dL (70-99) 249 mg/dL (70-99) Brief Hospital Course Mr. Robin is a 48 old [place] male with hypertension and diabetes but has no insurance or issues with cost so he has not been taking his insulin which is rather hefty doses for a few months. He came in with HONK but no coma. After 2 days I was able to fix his sugars with his home regimen namely 60 units lantus daily at bedtime and 30 units mealtimes fast acting. Daughter did not want him to go home because she wanted him to go to drug rehabilitation because of positive cocaine and marijuana use. Evaluated by Pat team. Does not meet inpatient criteria, patient did not want the daughter to be involved or for PAT team to divulge information to Dtr. Dtr aware Patient discharge today lisinopril HCTZ scripts on chart Insulin scripts on chart 2 Notes today, discussed with RUTH Soriano DC time 35 minutes cumulative Consults performed Pat team Discharge Information Condition at Discharge: Improved, Stable Disposition/Orders: D/C to Home Scheduled Cyanocobalamin (Vitamin B-12) (Vitamin B-12) 1,000 Mcg Tablet, 1 TAB PO DAILY, #30 Ref 2 (Reported) Entered as Reported by: KACY BLAKE on 11/29/171926 Last Action: HELD on 09/25/181837 by CARLEY DUEÑAS Hydrochlorothiazide (Hydrochlorothiazide Tablet ) 25 Mg Tablet, 25 MG PO DAILY for htn MDD 1, #90 Prescribed by: CARLEY DUEÑAS on 09/27/18 1101 Insulin Aspart (Novolog Flexpen) 100 Unit/1 Ml Insuln.pen, 30 UNITS SQ TIDWMEALS for dm2 MDD 1 for 30 Days, Ref 5 Prescribed by: CARLEY DUEÑAS on 09/27/18 1101 Insulin Glargine,Hum.rec.anlog (Lantus Solostar) 100 Unit/1 Ml Insuln.pen, 60 UNITS SQ QHS for dm 2 MDD 1 for 30 Days Prescribed by: CARLEY DUEÑAS on 09/27/18 1101 Lisinopril (Lisinopril) 20 Mg Tablet, 1 TAB PO DAILY for htn MDD 1, #90 Ref 5 Prescribed by: CARLEY DUEÑAS on 09/27/18 1101 Discontinued Medications Chlorhexidine Gluconate (Peridex) 15 Ml Mouthwash, 15 ML PO BID, #946 Prescribed by: PETER SMITH D.O. on 03/13/181840 Last Action: HELD on 09/25/181837 by CARLEY DUEÑAS Clindamycin Hcl (Clindamycin Hcl) 300 Mg Capsule, 1 CAP PO TID, #21 Prescribed by: IVONNE STEVENS MD on 12/27/17121 Last Action: HELD on 09/25/181837 by CARLEY DUEÑAS Hydrocodone Bit/Acetaminophen (Hydrocodone-Apap 10-325 ) 1 Each Tablet, 1 TAB PO QID PRN for PAIN, #60 Prescribed by: NATHAN HERNANDES on 11/30/17 1037 Last Action: HELD on 09/25/181837 by CARLEY DUEÑAS Hydrocodone/Apap 5-325 ([place] 5-325 Tablet) 1 Each Tablet, 1 TAB PO PRN Q6HRS PRN for PAIN, #6 Ref 0 Prescribed by: PETER SMITH D.O. on 03/13/181840 Last Action: Continued on 09/25/181837 by CARLEY DUEÑAS Insulin Detemir (Levemir Flextouch) 100 Unit/1 Ml Insuln.pen, 70 UNIT SQ QHS for 30 Days, Ref 5 Prescribed by: NATHAN HERNANDES on 11/30/17 1037 Last Action: HELD on 09/25/181837 by CARLEY DUEÑAS Penicillin V Potassium (Penicillin V Potassium) 500 Mg Tablet, 1 TAB PO QID, #40 Prescribed by: PETER SMITH D.O. on 03/13/181840 Last Action: HELD on 09/25/181837 by CARLEY DUEÑAS Polymyxin B Sulf/Trimethoprim (Polytrim Eye Drops) 10 Ml Drops, 1 DROP LEFTEYE Q6HRS, #10 Prescribed by: IVONNE STEVENS MD on 12/27/17121 Last Action: HELD on 09/25/181837 by CARLEY PARK MD Sep 27, 2018 11:03
--- NOTE | 2018-09-27 13:47 | NUR ---
Patient discharged, self care. Patient understands discharge instructions. Patient given education on new prescriptions. Patient given address and phone number to [facility]. Patient understands need to go to clinic tomorrow to begin enrollment process. Last blood sugar checked before lunch was 99. During stay, Daughter and niece were expressing concern to this RN about the patient's drug use. Patient notified of family call. Patient expressed to this RN that he wishes to discuss this with his family personally and for RN not to discuss any further with family. Daughter and niece notified of patient's decision. RN expressed patient privacy rights to family over phone, family understood. PAT team did visit patient but also told PAT team not to contact his family as well. Patient alert and stable upon discharge. IV discontinued. Belongings with patient. Patient picked up by daughter.
[2018-09-27] MEDS ORDERED: INSULIN GLARGINE 300 UNITS/3 ML INSULN.PEN. SQ SCH ×2 (21:00)
== END 2018-09-27 14:01 | disposition home or self-care (01) | DRG 639 ==
LOC: ER 15:18 → 5 NORTH 18:00
PROVIDERS: ADMIT Internal Medicine; ATTEND Internal Medicine
DX: E11.00 Type 2 diabetes mellitus with hyperosmolarity without nonketotic hyperglycemic-hyperosmolar coma (NKHHC) (principal); E11.42 Type 2 diabetes mellitus with diabetic polyneuropathy; F12.90 Cannabis use, unspecified, uncomplicated; F14.90 Cocaine use, unspecified, uncomplicated; I15.8 Other secondary hypertension; G89.29 Other chronic pain; M19.90 Unspecified osteoarthritis, unspecified site; M16.12 Unilateral primary osteoarthritis, left hip; Z79.899 Other long term (current) drug therapy; Z91.19 Patient's noncompliance with other medical treatment and regimen; Z79.4 Long term (current) use of insulin
CPT/HCPCS: 36415; 70450; 71045; 73502; 76705; 80048; 80053; 80307; 81001; 82553; 82962; 83036; 83690; 83735; 83880; 84484; 85025; 93005; 96361; 96374; J1815; J1885; J7030; 99285-25

== ENCOUNTER 2019-09-18 06:15 | Emergency (ER) | payer MEDICARE, MEDICAID ==
[~2019-09-18] VITALS: Ht 177.8 cm; Wt 65.0 kg
[~2019-09-18 06:15] MED LIST changes: +CYAN-25 PO; -CYAN10005 PO; +HYDR-2145 PO; +INSU100I13 SQ
[2019-09-18 06:33] VITALS: BP 160/92
--- NOTE | 2019-09-18 06:37 | PHYS DOC ---
Past Medical History Past Medical History: Diabetes-Type II, Hypertension, Other Additional Past Medical Histor: chronic left hip pain Past Surgical History: Other Additional Past Surgical Histo: LEFT HIP SURGERY, right forearm repair Smoking Status: Current Every Day Smoker Alcohol Use: None Drug Use: None General Adult EDM: Chief Complaint: DENTAL PROBLEM HPI: HPI: Patient is a 49 year old male presents to the ED with a chief complaint of right ear and right jaw tenderness. Patient states that the symptoms have been present for the last 2 to 3 days. Patient denies fever, chills, nausea, vomiting, chest pain, shortness of breath. Patient does state that she has a history of diabetes and is an active smoker. Patient does state that he has a chipped tooth but does not think that this has anything to do with it. Patient states that his doctor's office is closed due to the coronavirus pandemic. Review of Systems: Review of Systems: Constitutional: Denies fever or chills. [] Eyes: Denies change in visual acuity. [] HENT: Complains of pain in his right ear and right jaw. Respiratory: Denies cough or shortness of breath. [] Cardiovascular: Denies chest pain or edema. [] GI: Denies abdominal pain, nausea, vomiting, bloody stools or diarrhea. [] Musculoskeletal: Denies back pain or joint pain. [] Neurologic: Denies headache, focal weakness or sensory changes. [] Heart Score: Risk Factors: Risk Factors: DM, Current or recent (<one month) smoker, HTN, HLP, family history of CAD, obesity. Risk Scores: Score 0 - 3: 2.5% MACE over next 6 weeks - Discharge Home Score 4 - 6: 20.3% MACE over next 6 weeks - Admit for Clinical Observation Score 7 - 10: 72.7% MACE over next 6 weeks - Early Invasive Strategies Allergies: Allergies: Allergies Coded Allergies Type Severity Reaction Last Updated Verified No Known Drug Allergies 09/12/13 No Physical Exam: PE: Constitutional: Well developed, well nourished, no acute distress, non-toxic appearance. [] HENT: Normocephalic, atraumatic, very mild swelling in the right ear. Right submandibular lymph node present. Eyes: PERRLA, EOMI Neck: Normal range of motion, no tenderness, supple Cardiovascular:Heart rate regular rhythm, no murmur [] Lungs & Thorax: Bilateral breath sounds clear to auscultation [] Extremities: No tenderness, no cyanosis, no clubbing, ROM intact, no edema. [] Neurologic: Alert and oriented X 3 EKG: EKG: [] Radiology/Procedures: Radiology/Procedures: [] Course & Med Decision Making: Course & Med Decision Making Patient does have signs of otitis externa. There is no obvious discharge from the ear. Mild tenderness to movement of the ear. Since patient does not have PCP follow-up immediately I will treat patient aggressively. Patient will be given Rocephin 1 g IM and will be treated with oral antibiotics as an outpatient. Discussed plan of care with patient. Appropriate discharge instructions given to patient to return to the ED to seek immediate medical evaluation. Patient is instructed to follow up with PCP in one to 2 days. Patient is instructed to return to the ED if symptoms worsen or if any concerns. Dragon Disclaimer: Dragon Disclaimer: This electronic medical record was generated, in whole or in part, using a voice recognition dictation system. Departure Departure Impression: Primary Impression: Otitis externa Disposition: 01 HOME, SELF-CARE Condition: GOOD Referrals: NO PCP (PCP) Patient Instructions: Otitis Externa, Otitis Media with Effusion Additional Instructions: Please return to the ED if symptoms worsen or if any concerns. Scripts Hydrocodone/Apap 5-325 (NORCO 5-325 TABLET) 1 Each Tablet 1 EACH PO PRN Q6HRS PRN for PAIN MDD 6 tabs, #12 TAB as needed for pain Prov: DAYANNA GAITANLI E DO 09/18/19 Ciprofloxacin Hcl (CIPRO) 500 Mg Tablet 1 TAB PO BID for 10 Days, #20 TAB 0 Refills Prov: GOLKAYCEPALLISAMUEL E DO 09/18/19 GOLKAYCEPALLISAMUEL E DO September 18, 2019 06:37
[2019-09-18] MEDS ORDERED: LIDOCAINE 1% PF 2 ML VIAL. ONE (06:53)
[2019-09-18] MEDS ORDERED: cefTRIAXone IM 1 GM VIAL IM ONE (07:00)
[2019-09-18] MEDS ORDERED: CIPR500T94 PO (07:07)
[2019-09-18] MEDS ORDERED: HYDR-3164 PO (07:07)
== END 2019-09-18 07:20 | disposition home or self-care (01) ==
LOC: ER 06:15
DX: H60.91 Unspecified otitis externa, right ear (principal); R68.84 Jaw pain; G89.29 Other chronic pain; E11.9 Type 2 diabetes mellitus without complications; I10 Essential (primary) hypertension; F17.200 Nicotine dependence, unspecified, uncomplicated
CPT/HCPCS: 96372; 99283; J0696

== ENCOUNTER 2019-09-26 00:06 | Emergency (ER) | payer MEDICARE, MEDICAID ==
[~2019-09-26] VITALS: Ht 177.8 cm; Wt 63.5 kg
[~2019-09-26 00:06] MED LIST changes: +CIPR500T94 PO
--- NOTE | 2019-09-26 01:26 | RAD ---
INDICATION: Reason: injury / Spl. Instructions: / History: COMPARISON: None. IMPRESSION: Right hand: 3 views obtained. Plate and screws at the partially visualized distal ulna. No acute fracture or dislocation. There are some degenerative changes with suspected erosion at the first metacarpal distally. Left hand: 3 views obtained. No evidence of acute fracture or dislocation. Electronically signed by: Julio Cesar Joyce MD (09/26/2019 1:23 AM) [id number]
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
[2019-09-26] MEDS ORDERED: LIDOCAINE 2% 20 ML VIAL. IJ ONE (02:00)
[2019-09-26 02:36] VITALS: BP 169/98
== END 2019-09-26 02:36 | disposition home or self-care (01) ==
LOC: ER 00:06
DX: S61.216A Laceration without foreign body of right little finger without damage to nail, initial encounter (principal); S60.222A Contusion of left hand, initial encounter; E11.9 Type 2 diabetes mellitus without complications; G89.29 Other chronic pain; F17.200 Nicotine dependence, unspecified, uncomplicated; W22.01XA Walked into wall, initial encounter; Y93.89 Activity, other specified; Y92.89 Other specified places as the place of occurrence of the external cause; Y99.8 Other external cause status
CPT/HCPCS: 12001; 73130; 99283; J3490

== ENCOUNTER 2019-10-10 17:32 | Emergency (ER) | payer MEDICARE, MEDICAID ==
[~2019-10-10] VITALS: Ht 167.6 cm; Wt 63.0 kg
[2019-10-10 17:37] VITALS: BP 135/103
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
== END 2019-10-10 17:53 | disposition home or self-care (01) ==
LOC: ER 17:32
DX: S61.216D Laceration without foreign body of right little finger without damage to nail, subsequent encounter (principal); E11.9 Type 2 diabetes mellitus without complications; G89.29 Other chronic pain; F17.200 Nicotine dependence, unspecified, uncomplicated; W45.8XXD Other foreign body or object entering through skin, subsequent encounter
CPT/HCPCS: 99281